=== PATIENT | male | born 1990 | race African-American/Black ===

== ENCOUNTER → 2022-10-26 10:48 | Outpatient (BNVA) | payer OTHER, SELFPAY | PROVIDERS: PCP Internal Medicine; Visit Provider Internal Medicine Endocrinology, Diabetes & Metabolism | DX: E10.65 Type 1 diabetes mellitus with hyperglycemia (principal) | CPT/HCPCS: 82947 ==

== ENCOUNTER → 2022-11-21 12:36 | Outpatient (BNVA) | payer OTHER, SELFPAY | PROVIDERS: PCP Internal Medicine; Visit Provider Dietitian, Registered | DX: E10.65 Type 1 diabetes mellitus with hyperglycemia (principal) | CPT/HCPCS: 97802 ==

== ENCOUNTER 2023-01-24 09:58 | Outpatient (REF) | payer OTHER, SELFPAY ==
[2023-01-28 04:18] LABS: Glutamic acid decarboxylase Ab <5 IU/mL (<5)
== END 2023-01-24 09:59 | disposition home or self-care (01) ==
LOC: HO.LAB 09:58
PROVIDERS: PCP Internal Medicine; Visit Provider Internal Medicine Endocrinology, Diabetes & Metabolism
DX: E10.65 Type 1 diabetes mellitus with hyperglycemia (principal)
CPT/HCPCS: 36415; 86341

== ENCOUNTER → 2023-01-25 10:59 | Outpatient (BNVA) | payer OTHER, SELFPAY | PROVIDERS: PCP Internal Medicine; Visit Provider Internal Medicine Endocrinology, Diabetes & Metabolism | DX: E10.65 Type 1 diabetes mellitus with hyperglycemia (principal) | CPT/HCPCS: 82947; 83036 ==

== ENCOUNTER → 2023-03-07 11:11 | Outpatient (BNVA) | payer OTHER, SELFPAY | PROVIDERS: PCP Internal Medicine; Visit Provider Dietitian, Registered | DX: E10.65 Type 1 diabetes mellitus with hyperglycemia (principal); Z71.3 Dietary counseling and surveillance | CPT/HCPCS: 97803 ==

== ENCOUNTER → 2023-03-22 09:02 | Outpatient (BNVA) | payer OTHER, SELFPAY | PROVIDERS: PCP Internal Medicine; Visit Provider Registered Nurse Diabetes Educator ==

== ENCOUNTER → 2023-04-18 08:06 | Outpatient (BNVA) | payer OTHER, SELFPAY | PROVIDERS: PCP Internal Medicine; Visit Provider Internal Medicine Endocrinology, Diabetes & Metabolism | DX: E10.65 Type 1 diabetes mellitus with hyperglycemia (principal) | CPT/HCPCS: 82947; 83036 ==

== ENCOUNTER 2023-07-19 07:55 | Outpatient (AMB) | payer OTHER, SELFPAY ==
--- NOTE | 2023-07-19 08:00 | MHC.OFFVIS ---
Intake Vital Signs 07/19/23 08:04 Height 5 ft 11 in Weight 252 lb 10.396 oz BMI 35.2 BP 100/62 Blood Pressure Location Lt brachial Position Sitting Pulse 71 Pulse Source Pulse Oximeter Intake Visit Reasons: f/u Type 2 DM Intake Note: Patient presents today to follow up on Type Diabetes Mellitus. Patient receives DME supplies through: Last Diabetic Eye exam: 07/19/2023 Last Podiatry Visit:None Random Glucose: 233mg/dl HgA1C:11.3% Manufacturing Test Technician Required: No Accompanied by: Self / Same As Patient Allergies No Known Allergies Allergy (Verified 04/18/23 08:11) HPI HPI Comments History of Present Illness Details 32 YO M with is seen in consultation for presumed T1DM at the request of PCP. However pt has negative antibodies Initially diagnosed with DM in age 23 when presented with problems with vision .Was hospitalized . Saw aftab in [facility] Was initially started on treatment with insulin . Current regimen: Mounjaro 5 mg Qwkly stopped because of GI intolerance -had to go to ER Lantus 34 units Humalog 12-15 units premeals Unfortunately, patient did not bring log book or glucometer to follow-up visit No hypoglycemia Treats lows with skim milk . Checks sugar after to ensure it is rising. Follows the rule of 15's. No Family history of autoimmunity in Has eyes checked yearly, last eye exam 6 mos ago , keyur gaspar today retinopathy. Denies neuropathy, not see podiatry. Denies nephropathy, on CARMELLA/ARB. Has HLD, on statin. Denies history of CAD. Just Had diabetes education. Diet/Carb counting: Yes Denies prior episodes of DKA. Denies prior severe episodes of hypoglycemia requiring help or hospitalization. No family hx of diabetes Labs: [facility] Medical History (Updated 03/13/23 @ 09:54 by Erlinda Valentin, RD, LDN) Uncontrolled type 2 diabetes mellitus with hyperglycemia Uncontrolled type 1 diabetes mellitus with hyperglycemia, with long-term current use of insulin Surgical History History of surgery Family History Mother Hypertension Social History Household Members: Significant Other Alcohol intake: current Alcohol intake frequency: a few times a month Patient Tobacco Use Status: Never used Tobacco Physical Exam Vital Signs: Last Vital Signs Pulse 71 07/19/23 08:04 BP 100/62 07/19/23 08:04 BMI result Body Mass Index 35.2 Absence of Cushingoid features. Absence of acromegalic features. Neck exam reveals nl size thyroid about 15 gms. No thyroid nodules palpable. No carotid bruits present. Lungs CTA. Heart S1 S2, Reg R/R. No M/R/ G. Skin exam reveals absence of vitiligo or acanthosis nigricans. Abdominal exam reveals Soft NT/ND with NA BS. No organomegaly present. Extrem Other: Visual exam of foot performed. No ulcerations or open lesions. No onchomycosis, no callouses.Pulses 2 + distally. Sensation intact to monofilament exam. Vibratory sensation sensed 10 seconds in right, 10 seconds in left with 128 Hz tuning fork Results AMB Hemoglobin A1c AMB Hemoglobin A1c 11.3 % Last Edit by Siobhan Ovalles on 07/19/23 08:25 Results Reviewed Results Reviewed: 07/19/23 08:12 Glucose, Whole Blood Routine Laboratory Last Values Glucose (Clinic) 233 mg/dL (60-115) H 07/19/23 08:12 Assessment & Plan Assessment & Plan (1) Uncontrolled type 2 diabetes mellitus with hyperglycemia: Code(s): E11.65 - Type 2 diabetes mellitus with hyperglycemia (2) Uncontrolled type 1 diabetes mellitus with hyperglycemia, with long-term current use of insulin: Comment: It appears that Pt has type 2 DM with SANDI <5 mg on 01/24/23 and as stated by director of market intelligence Code(s): E10.65 - Type 1 diabetes mellitus with hyperglycemia Plan: This is a 32-year-old male with history of type 2 diabetes being treated with basal -bolus insulin with poor glycemic control and no known microvascular or macrovascular complication Unfortunately, we could not make any changes the patient regimen because of lack of data. I gave him samples of Dexcom G7 and renewed his sensors . We talked extensively about insulin pump and he seems interested lb with clinical educator to discuss . Will also check basic metabolic panel, lipid profile microalbumin to creatinine ratio Orders: Orders AMB Hemoglobin A1c Today E11.65 - Type 2 diabetes mellitus with hyperglycemia Basic Metabolic Panel Today E11.65 - Type 2 diabetes mellitus with hyperglycemia Microalbumin, Random (w Creat) Today E11.65 - Type 2 diabetes mellitus with hyperglycemia Lipid Panel Today E11.65 - Type 2 diabetes mellitus with hyperglycemia Medications: Refilled blood-glucose sensor (Dexcom G7 Sensor device) As directed change every 10 days 2 ea 4RF blood-glucose sensor (Dexcom G7 Sensor device) As directed change every 10 days 3 ea 4RF Coding Level of Care Code Est Pt Level 4 (98041) Diagnoses Uncontrolled type 2 diabetes mellitus with hyperglycemia E11.65 Uncontrolled type 1 diabetes mellitus with hyperglycemia, with long-term current use of insulin E10.65
[2023-07-19 08:04] VITALS: BP 100/62; PULSE 71; BMI 35.2
[2023-07-19 08:16] LABS: Glucose, Whole Blood 233 mg/dL (60-115)
== END 2023-07-19 08:37 | disposition home or self-care (01) ==
PROVIDERS: PCP Internal Medicine; Visit Provider Internal Medicine Endocrinology, Diabetes & Metabolism
DX: E11.65 Type 2 diabetes mellitus with hyperglycemia (principal)
CPT/HCPCS: 99214

== ENCOUNTER → 2023-07-19 07:55 | Outpatient (BNVA) | payer OTHER, SELFPAY | PROVIDERS: PCP Internal Medicine; Visit Provider Internal Medicine Endocrinology, Diabetes & Metabolism | DX: E11.65 Type 2 diabetes mellitus with hyperglycemia (principal); Z79.4 Long term (current) use of insulin | CPT/HCPCS: 82947; 83036 ==

== ENCOUNTER 2024-02-04 07:41 | Outpatient (AMB) | payer OTHER, SELFPAY ==
--- NOTE | 2024-02-04 07:50 | MHC.OFFVIS ---
Intake Vital Signs 02/04/24 07:54 Height 5 ft 11 in Weight 274 lb 14.663 oz BMI 38.3 BP 120/76 Blood Pressure Location Lt brachial Position Sitting Pulse 74 Pulse Source Pulse Oximeter Intake Visit Reasons: f/u Type 2 DM-confirmed Intake Note: Patient present today to follow up on Diabetes Mellitus 1. Last Diabetic Eye exam: 02/2023 Last Podiatry Visit: Doesn't have one Random Glucose: 105 mg/dl HgA1C: 12.9% Professor Of Psychiatry Required: No Accompanied by: Self / Same As Patient Allergies No Known Allergies Allergy (Verified 02/04/24 07:57) HPI HPI Comments History of Present Illness Details 33 YO M with is seen in consultation for presumed T1DM at the request of PCP. However pt has negative antibodies Initially diagnosed with DM in age 23 when presented with problems with vision .Was hospitalized . Saw aftab in [facility] Was initially started on treatment with insulin . Current regimen: Mounjaro 5 mg Qwkly stopped because of GI intolerance -had to go to ER Lantus 34 units Humalog 12-15 units premeals Unfortunately, patient did not bring log book or glucometer to follow-up visit No hypoglycemia Treats lows with skim milk . Checks sugar after to ensure it is rising. Follows the rule of 15's. No Family history of autoimmunity in Has eyes checked yearly, last eye exam has appt this mo retinopathy. Denies neuropathy, not see podiatry. Denies nephropathy, on CARMELLA/ARB. Has HLD, on statin. Denies history of CAD. Just Had diabetes education. Diet/Carb counting: Yes Denies prior episodes of DKA. Denies prior severe episodes of hypoglycemia requiring help or hospitalization. No family hx of diabetes Labs: [facility] Medical History (Updated 03/13/23 @ 09:54 by Erlinda Valentin, RD, LDN) Uncontrolled type 2 diabetes mellitus with hyperglycemia Uncontrolled type 1 diabetes mellitus with hyperglycemia, with long-term current use of insulin Surgical History History of surgery Family History Mother Hypertension Social History Household Members: Significant Other Alcohol intake: current Alcohol intake frequency: a few times a month Patient Tobacco Use Status: Never used Tobacco Physical Exam Vital Signs: Last Vital Signs Pulse 74 02/04/24 07:54 BP 120/76 02/04/24 07:54 BMI result Body Mass Index 38.3 Absence of Cushingoid features. Absence of acromegalic features. Neck exam reveals nl size thyroid about 15 gms. No thyroid nodules palpable. No carotid bruits present. Lungs CTA. Heart S1 S2, Reg R/R. No M/R/ G. Skin exam reveals absence of vitiligo or acanthosis nigricans. Abdominal exam reveals Soft NT/ND with NA BS. No organomegaly present. Extrem Other: Visual exam of foot performed. No ulcerations or open lesions. No onchomycosis, no callouses.Pulses 2 + distally. Sensation intact to monofilament exam. Vibratory sensation sensed 10 seconds in right, 10 seconds in left with 128 Hz tuning fork Results AMB Hemoglobin A1c AMB Hemoglobin A1c 12.9 % Last Edit by DIPTI Hall on 02/04/24 08:12 Results Reviewed Results Reviewed: Laboratory Last Values Glucose (Clinic) 105 mg/dL (60-115) 02/04/24 07:58 Assessment & Plan Assessment & Plan (1) Uncontrolled type 2 diabetes mellitus with hyperglycemia: Code(s): E11.65 - Type 2 diabetes mellitus with hyperglycemia Plan: This is a 32-year-old male with history of type 2 diabetes being treated with basal -bolus insulin with poor glycemic control and no known microvascular or macrovascular complication Unfortunately, we could not make any changes the patient regimen because of lack of data. I gave him samples of Dexcom G7 and renewed his sensors . Insurance company is denying the sensor and we are trying to appeal this as he is on 4 insulin injections today with poor glycemic control. We talked extensively about insulin pump and he seems interested lb with peer educator to discuss . Will also check basic metabolic panel, lipid profile microalbumin to creatinine ratio Orders: Orders AMB Hemoglobin A1c Today E11.65 - Type 2 diabetes mellitus with hyperglycemia, Z13.9 - Encounter for screening, unspecified Medications: Refilled blood-glucose sensor (Dexcom G7 Sensor device) As directed change every 10 days 3 ea 4RF Coding Level of Care Code Est Pt Level 4 (75902) Diagnoses Uncontrolled type 2 diabetes mellitus with hyperglycemia E11.65
[2024-02-04 07:54] VITALS: BP 120/76; PULSE 74; BMI 38.3
[2024-02-04 08:04] LABS: Glucose, Whole Blood 105 mg/dL (60-115)
== END 2024-02-04 08:24 | disposition home or self-care (01) ==
PROVIDERS: PCP Internal Medicine; Visit Provider Internal Medicine Endocrinology, Diabetes & Metabolism
DX: Z13.9 Encounter for screening, unspecified (principal); E11.65 Type 2 diabetes mellitus with hyperglycemia
CPT/HCPCS: 99214

== ENCOUNTER → 2024-02-04 07:41 | Outpatient (BNVA) | payer OTHER, SELFPAY | PROVIDERS: PCP Internal Medicine; Visit Provider Internal Medicine Endocrinology, Diabetes & Metabolism ==

== ENCOUNTER 2024-02-04 08:23 | Outpatient (REF) | payer OTHER, SELFPAY ==
[2024-02-04 10:54] LABS: Anion Gap 10 (12-20); Blood Urea Nitrogen 9 mg/dL (9-16); Carbon Dioxide 28 mmol/L (22-29); Chloride 108 mmol/L (96-108); Cholesterol 145 mg/dL (<200); Estimated Glomerular Filt Rate > 60; Glucose Random 110 mg/dL (60-115); HDL Cholesterol 40 mg/dL (>40); LDL Cholesterol Calculated 93 mg/dL (<100); Potassium 3.7 mmol/L (3.3-5.1); Sodium 142 mmol/L (135-145); Triglycerides 62 mg/dL (<150)
[2024-02-04 14:44] LABS: Microalbum/Creatinine Ratio Ur 22.5 ug/mg cr (<30)
== END 2024-02-04 08:24 | disposition home or self-care (01) ==
LOC: HO.10HDL 08:23
PROVIDERS: Visit Provider Internal Medicine Endocrinology, Diabetes & Metabolism
DX: E11.65 Type 2 diabetes mellitus with hyperglycemia (principal)
CPT/HCPCS: 36415; 80048; 80061; 82043; 82570; 82947; 83036

== ENCOUNTER 2024-07-08 09:27 | Outpatient (AMB) | payer OTHER, SELFPAY ==
--- NOTE | 2024-07-08 09:27 | A.OFFVIS_ITS ---
Vital Signs 07/08/24 09:31 Height 5 ft 11 in Weight 278 lb 7.101 oz BMI 38.8 BP 116/82 Blood Pressure Location Rt brachial Position Sitting Pulse 88 Pulse Source Pulse Oximeter Intake Visit Reasons: T2DM Intake Note: Patient present today to follow up on Type 2 Diabetes Mellitus. Last Diabetic Eye exam: Approx 1-2 months ago Last Podiatry Visit: Does not see a Diesel Engine Tester Random Glucose: 181 mg/dl HgA1C: 12.0% Aerosol Line Operator Required: No Accompanied by: Self / Same As Patient Allergies No Known Allergies Allergy (Verified 07/08/24 09:33) HPI Comments Details: This is a 33-year-old male with a past medical history of uncontrolled type II diabetes diagnosed at age 23 presenting for diabetic management. He was last seen by Dr. Sanchez in January of 2024. Initial diagnosis he was thought to have type 1 diabetes, but he had negative antibodies. No home log to review. Phone is not compatible with his sensor. Patient was provided with a reader today. The patient has a [id number] son, and he started a new job at [employer] a couple of months ago. 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 With these changes he has recently decided to implement lifestyle modifications. He increased his activity level, and he started to eat healthier meals that are centered around protein and vegetables. He cut back on soda. If he has something sweet it is an occasional fruit bar, but he is not having other sugary snacks or chips. Patient says he has noticed a big difference in his BG readings with these changes. He forgot his glucometer, and he reports that BG at 6am 100 is lowest and highest 250. Average 120-145. Checks BG before breakfast at 9:00am. This is usually 130-140. Eats lunch between 11:30 and 1pm. This is usually chicken or steak with vegetables and water. After the meal BG 160-190. Eats evening meal at 5 or 7 pm, sometimes mac and cheese with chicken (grilled or chicken cutlet), cucumber and water or just protein and vegetables and water. BG usually 200 and then decreases to 170s after meal. Denies hypoglycemia. Highest glucose in the last month was 250 in the morning. . Nonsmoker. Drinks 1-2 alcoholic beverages on weekends. Hemoglobin a1c 12% today. Current medication regimen: Humalog sliding scale and Lantus 34 units every morning. Mounjaro discontinued due to GI side effects (had to go to ER). Compliance issues: none Eye exam: OD retinopathy, but patient says this has improved on recent eye exam at [facility]. OS no retinopathy. Microvascular complications: retinopathy Macrovascular complications: none Hypertension: no Hyperlipidemia: no LDL at goal <100. ROS: Constitutional: No unexplained weight loss, fever, chills, fatigue or night sweats. Eyes: No vision changes, blurry vision, double vision, eye pain Respiratory: No shortness of breath Cardiovascular: No chest pain, chest pressure or chest discomfort. No palpitations or pedal edema. Neurologic: No headache, dizziness, syncope, unilateral weakness, ataxia, numbness or tingling in the extremities. Endocrine: No cold or heat intolerance. No polyuria or polydipsia. Physical exam: Constitutional: Alert, in no distress. Eyes: Pupils are equal, round and reactive to light. Extraocular muscles intact. Neck: Supple, Full range of motion. No lymphadenopathy. Thyroid symmetric with no palpable masses. Respiratory: Clear to auscultation. Cardiovascular: S1 S2 regular. No murmurs. Right foot: Warm and well perfused. No clubbing, cyanosis or edema. DP pulse 3+. Intact vibratory sensation. Intact sensation to monofilament. No open wounds. Left foot: Warm and well perfused. No clubbing, cyanosis or edema. DP pulse 3+. Intact vibratory sensation. Intact sensation to monofilament. No open wounds. [facility] Medical History (Updated 03/13/23 @ 09:54 by Erlinda Valentin, RD, LDN) Uncontrolled type 2 diabetes mellitus with hyperglycemia Uncontrolled type 1 diabetes mellitus with hyperglycemia, with long-term current use of insulin Surgical History History of surgery Family History Mother Hypertension Social History Household Members: Significant Other Alcohol intake: current Alcohol intake frequency: a few times a month Patient Tobacco Use Status: Never used Tobacco Physical Exam Vital Signs: Last Vital Signs Pulse 88 07/08/24 09:31 BP 116/82 07/08/24 09:31 BMI result Body Mass Index 38.8 Results AMB Hemoglobin A1c AMB Hemoglobin A1c 12.0 % Last Edit by DIPTI Cook on 07/08/24 09:55 Results Reviewed Results Reviewed: Laboratory Last Values Glucose (Clinic) 181 mg/dL (60-115) H 07/08/24 09:39 Laboratory Tests 02/04/24 02/04/24 08:02 08:30 Creatinine 0.75 Estimated GFR > 60 Hgb A1c (Clinic) 12.9 H Triglycerides 62 Cholesterol 145 LDL Cholesterol, Calc 93 HDL Cholesterol 40 L Laboratory Tests 02/04/24 08:30 Urine Creatinine 337.01 Urine Microalbumin 76.0 Microalb/Creat Ratio 22.5 Assessment & Plan Assessment & Plan (1) Uncontrolled type 2 diabetes mellitus with hyperglycemia: Code(s): E11.65 - Type 2 diabetes mellitus with hyperglycemia Category: Medical Plan: In summary this is a 33-year-old male with type 2 diabetes with retinopathy which has been poorly controlled, but he reports recent improvement in BGs following lifestyle modifications and dietary changes. We will need to verify this per glucometer. Given reader for G7 device. Reviewed importance of bringing glucometer to visits. We will schedule a short-term follow-up to re view data. Previously discussed insulin pump with Dr. Sanchez. He is still interested in this though not completely sure if he wants to proceed. Will schedule follow-up with sprinkler installer. We also discussed Cequr device, and he thinks this is appealing. He did not tolerate GLP 1. We will discuss alternative antidiabetic agents at his follow-up appointment once data is available to review. Orders: Orders AMB Hemoglobin A1c Today E11.65 - Type 2 diabetes mellitus with hyperglycemia Referrals Diabetes Education Referral E10.65 - Type 1 diabetes mellitus with hyperglycemia Coding Level of Care Code Est Pt Level 5 (12818) Complex EM visit Add On G2211 Diagnoses Uncontrolled type 2 diabetes mellitus with hyperglycemia E11.65 Time Spent (min) 48 Comment reviewing chart/labs, direct patient care, completing documentation
[2024-07-08 09:31] VITALS: BP 116/82; PULSE 88; BMI 38.8
[2024-07-08 09:43] LABS: Glucose, Whole Blood 181 mg/dL (60-115)
== END 2024-07-08 10:14 | disposition home or self-care (01) ==
PROVIDERS: Visit Provider Physician Assistant Medical
DX: E11.65 Type 2 diabetes mellitus with hyperglycemia (principal)
CPT/HCPCS: 99215

== ENCOUNTER → 2024-07-08 09:27 | Outpatient (BNVA) | payer OTHER, SELFPAY | PROVIDERS: Visit Provider Physician Assistant Medical | DX: E11.65 Type 2 diabetes mellitus with hyperglycemia (principal); E11.319 Type 2 diabetes mellitus with unspecified diabetic retinopathy without macular edema | CPT/HCPCS: 82947; 83036 ==

== ENCOUNTER 2024-09-02 09:19 | Outpatient (AMB) | payer OTHER, SELFPAY ==
--- NOTE | 2024-09-02 09:20 | A.OFFVIS_ITS ---
Vital Signs 09/02/24 09:23 Height 5 ft 11 in Weight 291 lb 0.163 oz BMI 40.6 BP 122/76 Blood Pressure Location Rt brachial Position Sitting Pulse 78 Pulse Source Pulse Oximeter Intake Visit Reasons: DM review CGM/LVM Intake Note: Patient present today to follow up on Type 2 Diabetes Mellitus. Last Diabetic Eye exam: 2023 Last Podiatry Visit: Does not see a Cork Pressing Machine Operator Most Recent HgA1C: 12.0%, 07/08/2024 Random Glucose: 227 mg/dL, Today Electric Accounting Machine Operator Required: No Accompanied by: Self / Same As Patient Allergies No Known Allergies Allergy (Verified 09/02/24 09:22) HPI Comments Details: This is a 33-year-old male with a past medical history of uncontrolled type II diabetes diagnosed at age 23 presenting for diabetic management. He was last seen by me in June 2024. Unable to download CGM. Reviewed data on phone. Dexcom G7 review from the past 14 days: GMI 9.7% Target 27% High 23% Very high 49% 0% hypoglycemia Denies hypoglycemia. Nonsmoker. Drinks 1-2 alcoholic beverages on weekends. Hemoglobin a1c 12% 07/08/24. Current medication regimen: Humalog and Lantus 34 units every morning. Mounjaro discontinued due to GI side effects (after 2nd injection he had nausea and vomiting and went to the ER). Taking 12-14 units of Humalog before lunch, 15 units before breakfast, 9-10 units before dinner. Compliance issues: none Eye exam: OD retinopathy- [facility]. Microvascular complications: retinopathy Macrovascular complications: none Hypertension: no Hyperlipidemia: no LDL at goal <100. ROS: Constitutional: No unexplained weight loss, fever, chills, fatigue or night sweats. Eyes: No vision changes, blurry vision, double vision, eye pain Respiratory: No shortness of breath Cardiovascular: No chest pain, chest pressure or chest discomfort. No palpitations or pedal edema. Neurologic: No headache, dizziness, syncope, unilateral weakness, ataxia, numbness or tingling in the extremities. Endocrine: No cold or heat intolerance. No polyuria or polydipsia. Physical exam: Constitutional: Alert, in no distress. Neck: Supple, Full range of motion. No lymphadenopathy. No palpable thyroid masses. Respiratory: Clear to auscultation. Cardiovascular: S1 S2 regular. No murmurs. Gastrointestinal: Abdomen soft, non-tender, non-distended. Normal bowel sounds. No palpable masses. Extremities: Warm and well perfused. No clubbing, cyanosis or edema. Psychiatric: Normal mood and affect [facility] Medical History Uncontrolled type 2 diabetes mellitus with hyperglycemia Uncontrolled type 1 diabetes mellitus with hyperglycemia, with long-term current use of insulin Surgical History History of surgery Family History Mother Hypertension Social History Household Members: Significant Other Alcohol intake: current Alcohol intake frequency: a few times a month Patient Tobacco Use Status: Never used Tobacco Physical Exam Vital Signs: Last Vital Signs Pulse 78 09/02/24 09:23 BP 122/76 09/02/24 09:23 BMI result Body Mass Index 40.6 Results Reviewed Results Reviewed: Laboratory Last Values Glucose (Clinic) 227 mg/dL (60-115) H 09/02/24 09:25 Laboratory Tests 02/04/24 02/04/24 08:02 08:30 Creatinine 0.75 Estimated GFR > 60 Hgb A1c (Clinic) 12.9 H Triglycerides 62 Cholesterol 145 LDL Cholesterol, Calc 93 HDL Cholesterol 40 L Laboratory Tests 02/04/24 08:30 Urine Creatinine 337.01 Urine Microalbumin 76.0 Microalb/Creat Ratio 22.5 Assessment & Plan Assessment & Plan (1) Uncontrolled type 2 diabetes mellitus with hyperglycemia: Code(s): E11.65 - Type 2 diabetes mellitus with hyperglycemia Category: Medical Plan: In summary this is a 33-year-old male with uncontrolled type 2 diabetes with retinopathy. Continue Humalog and continue Lantus 34 units daily. We discussed addition of SGLT2, but he would like to try another GLP 1 because he wants to lose weight. We discussed he may have the same side effects, but in some patients they are able to tolerate 1 versus another. I will send a prescription for ondansetron to take if he has nausea or vomiting, but he was advised to go to the ER if he has any severe side effects. He understands. He denies contraindications to this class of medication. The patient is still interested in an insulin pump. Refer to paraeducator. He will follow up in a month for type 2 diabetes with me. Medications: New semaglutide (Ozempic) for 4 weeks 0.25 mg (0.368 mL) subcut QWEEK 3 mL 0RF ondansetron HCl 4 mg PO Q8H PRN 10 tabs 0RF nausea and vomiting insulin glargine (Lantus Solostar U-100 Insulin) 34 units (0.34 mL) subcut DAILY 15 mL 5RF Changed From insulin lispro (Humalog KwikPen (U-100) Insulin) 24-34 units subcutaneously 3 times a day; To insulin lispro (Humalog KwikPen (U-100) Insulin) Inject subcutaneously per sliding scale; maximum 45 units/24 hours 15 mL 5RF Refilled blood-glucose sensor ([employer] G7 Sensor device) As directed change every 10 days 3 ea 11RF Coding Level of Care Code Est Pt Level 4 (39748) Complex EM visit Add On G2211 Diagnoses Uncontrolled type 2 diabetes mellitus with hyperglycemia E11.65
[2024-09-02 09:23] VITALS: BP 122/76; PULSE 78; BMI 40.6
[2024-09-02 09:29] LABS: Glucose, Whole Blood 227 mg/dL (60-115)
== END 2024-09-02 10:05 | disposition home or self-care (01) ==
PROVIDERS: Visit Provider Physician Assistant Medical
DX: E11.65 Type 2 diabetes mellitus with hyperglycemia (principal)

== ENCOUNTER → 2024-09-02 09:19 | Outpatient (BNVA) | payer OTHER, SELFPAY | PROVIDERS: Visit Provider Physician Assistant Medical | DX: E11.65 Type 2 diabetes mellitus with hyperglycemia (principal); E11.319 Type 2 diabetes mellitus with unspecified diabetic retinopathy without macular edema; Z79.4 Long term (current) use of insulin | CPT/HCPCS: 82947 ==

== ENCOUNTER 2024-10-14 09:28 | Outpatient (AMB) | payer OTHER, SELFPAY ==
--- NOTE | 2024-10-14 09:40 | MHC.OFFVIS ---
Vital Signs 10/14/24 09:43 Height 5 ft 11 in Weight 295 lb 13.765 oz BMI 41.3 BP 124/76 Blood Pressure Location Rt brachial Position Sitting Pulse 77 Pulse Source Pulse Oximeter Intake Visit Reasons: DM/CONF Intake Note: Patient present today to follow up on Type 2 Diabetes Mellitus. Last Diabetic Eye exam: Mid summer 2023 Last Podiatry Visit: Does not see a Production Service Manager Random Glucose: 208 mg/dl HgA1C: 9.2% 10/14/24 Decorative Cutting Machine Tender Required: No Accompanied by: Self / Same As Patient Allergies No Known Allergies Allergy (Verified 10/14/24 09:43) HPI Comments Details: This is a 33-year-old male with a past medical history of uncontrolled type II diabetes diagnosed at age 23 presenting for diabetic management. He was last seen by me 09/02/24. Reviewed Dexcom download: GMI 9.6% Time in range 27% High readings 17% Very high readings 55% Low 1% Very low 0% Standard deviation 111 mg/dL He has a pattern of nighttime and daytime highs. Patient had several episodes of low blood sugar overnight. One occurred last night. He administered 18 units of Humalog 5-10 minutes after starting a carbohydrate heavy meal. Patient says he always administers Humalog after he starts eating. Nonsmoker. Drinks 1-2 alcoholic beverages on weekends. Hemoglobin A1c 10/14/2024 9.2%. Down from 12% 07/08/24. Current medication regimen: Humalog 10-18 units with meals and Lantus 34 units every morning and Ozempic 0.25 mg weekly. Mounjaro discontinued due to GI side effects (after 2nd injection he had nausea and vomiting and went to the ER). Patient says he was previously on metformin, but it was discontinued when he was thought to be a type [address] Sanchez ordered a SANDI antibody test in 2022 which was negative. He has no family history of type 1 or type 2 diabetes. Compliance issues: He stopped Ozempic due headache that lasted 1 week after his 1st dose. Eye exam: OD retinopathy- [place] [facility]. Microvascular complications: retinopathy Macrovascular complications: none Hypertension: no Hyperlipidemia: no LDL at goal <100. ROS: Constitutional: No unexplained weight loss, fever, chills, fatigue or night sweats. Eyes: No vision changes, blurry vision, double vision, eye pain Respiratory: No shortness of breath Cardiovascular: No chest pain, chest pressure or chest discomfort. No palpitations or pedal edema. Neurologic: No headache, dizziness, syncope, unilateral weakness, ataxia, numbness or tingling in the extremities. Endocrine: No cold or heat intolerance. No polyuria or polydipsia. Physical exam: Constitutional: Alert, in no distress. Neck: Supple, Full range of motion. No lymphadenopathy. No palpable thyroid masses. Respiratory: Clear to auscultation. Cardiovascular: S1 S2 regular. No murmurs. [facility] Medical History Uncontrolled type 2 diabetes mellitus with hyperglycemia Uncontrolled type 1 diabetes mellitus with hyperglycemia, with long-term current use of insulin Surgical History History of surgery Family History Mother Hypertension Social History Household Members: Significant Other Alcohol intake: current Alcohol intake frequency: a few times a month Patient Tobacco Use Status: Never used Tobacco Physical Exam Vital Signs: Last Vital Signs Pulse 77 10/14/24 09:43 BP 124/76 10/14/24 09:43 BMI result Body Mass Index 41.3 Results AMB Hemoglobin A1c AMB Hemoglobin A1c 9.2 % Last Edit by DIPTI Cook on 10/14/24 09:57 Results Reviewed Results Reviewed: Laboratory Last Values Glucose (Clinic) 208 mg/dL (60-115) H 10/14/24 09:47 Laboratory Tests 02/04/24 02/04/24 08:02 08:30 Creatinine 0.75 Estimated GFR > 60 Hgb A1c (Clinic) 12.9 H Triglycerides 62 Cholesterol 145 LDL Cholesterol, Calc 93 HDL Cholesterol 40 L Laboratory Tests 02/04/24 08:30 Urine Creatinine 337.01 Urine Microalbumin 76.0 Microalb/Creat Ratio 22.5 Laboratory Tests 01/24/23 10:09 SANDI Antibody <5 Assessment & Plan Assessment & Plan (1) Uncontrolled type 2 diabetes mellitus with hyperglycemia: Code(s): E11.65 - Type 2 diabetes mellitus with hyperglycemia Category: Medical Plan: In summary this is a 33-year-old male with uncontrolled diabetes with retinopathy. Negative SANDI antibody is suggestive of type 2 diabetes. We will check islet cell antibody, repeat SANDI and check C-peptide level to confirm. If type 2 diabetes is confirmed by testing we discussed reinitiating metformin versus trying another GLP 1 or SGLT2. He will think about this. Reduce Humalog scale with max dose of 14 units due to episodes of nocturnal hypoglycemia. We also discussed proper administration because he was taking it after eating. He will administer 15 minutes before meals. Increase Lantus to 38 units daily. He has an appointment scheduled with the coding educator. He is still interested in an insulin pump. We discussed proper treatment of hypoglycemia. Written instructions given. Glucose tablets sent to pharmacy. I will follow up with him by phone regarding his test results when they are available and have him see me back in the office in 6 weeks for type 2 diabetes. Orders: Orders Islet Cell Antibody Scrn/Titer Today E11.65 - Type 2 diabetes mellitus with hyperglycemia C Peptide Today E11.65 - Type 2 diabetes mellitus with hyperglycemia Glutamic acid decarboxylase Ab Today E11.65 - Type 2 diabetes mellitus with hyperglycemia AMB Hemoglobin A1c Today E11.65 - Type 2 diabetes mellitus with hyperglycemia Medications: New glucose (Dex4 Glucose) until symptoms of low blood sugar are controlled 16 grams (4 x 4 gram) PO Q15M PRN 10 tabs 2RF hypoglycemia Patient Instructions: Administration timing of short-acting/mealtime insulin Humalog: Administer within 15 minutes before a meal. Decrease max dose of humalog to 14 units Increase Lantus to 38 units nightly. Please call the office if low blood sugars please contact me. If you experience low blood sugar, treat this by eating a chewable fruit candy like skittles or jelly beans (about 8 pieces), 4 ounces (1/2 cup) of fruit juice (not diet), 1 tablespoon of honey or 4 glucose tablets. If your blood sugar is under 50, take double the amount of one of the above. Recheck your blood sugar in 15 minutes. Coding Level of Care Code Est Pt Level 4 (39808) Complex EM visit Add On G2211 Diagnoses Uncontrolled type 2 diabetes mellitus with hyperglycemia E11.65
[2024-10-14 09:43] VITALS: BP 124/76; PULSE 77; BMI 41.3
[2024-10-14 09:51] LABS: Glucose, Whole Blood 208 mg/dL (60-115)
== END 2024-10-14 10:12 | disposition home or self-care (01) ==
PROVIDERS: Visit Provider Physician Assistant Medical
DX: E11.65 Type 2 diabetes mellitus with hyperglycemia (principal)

== ENCOUNTER → 2024-10-14 09:28 | Outpatient (BNVA) | payer OTHER, SELFPAY | PROVIDERS: Visit Provider Physician Assistant Medical | DX: E11.65 Type 2 diabetes mellitus with hyperglycemia (principal); Z79.4 Long term (current) use of insulin | CPT/HCPCS: 82947; 83036 ==

== ENCOUNTER 2024-10-14 10:14 | Outpatient (REF) | payer OTHER, SELFPAY ==
[2024-10-16 00:22] LABS: C Peptide 0.23 ng/mL (0.80-3.85)
[2024-10-17 19:39] LABS: Glutamic acid decarboxylase Ab <5 IU/mL (<5)
[2024-10-18 00:23] LABS: Islet Cell Antibody Screen NEGATIVE (NEGATIVE)
== END 2024-10-14 10:15 | disposition home or self-care (01) ==
LOC: HO.10HDL 10:14
PROVIDERS: Visit Provider Physician Assistant Medical
DX: E11.65 Type 2 diabetes mellitus with hyperglycemia (principal)
CPT/HCPCS: 36415; 84681; 86341

== ENCOUNTER 2024-10-23 07:57 | Outpatient (AMB) | payer OTHER, SELFPAY ==
--- NOTE | 2024-10-23 08:31 | MHC.AMDMED ---
Intake Intake Visit Reasons: DM Baling Press Operator Required: No Accompanied by: Self / Same As Patient Allergies No Known Allergies Allergy (Verified 10/14/24 09:43) HPI Comprehensive Diabetes Asmnt Most Recent Diabetes Results: Microalb/Creat Ratio 22.5 ug/mg cr (<30) 02/04/24 Cholesterol 145 mg/dL (<200) 02/04/24 HDL Cholesterol 40 mg/dL (>40) L 02/04/24 Triglycerides 62 mg/dL (<150) 02/04/24 Creatinine 0.75 mg/dL (0.5-1.4) 02/04/24 Blood Urea Nitrogen 9 mg/dL (9-16) 02/04/24 Sodium 142 mmol/L (135-145) 02/04/24 Potassium 3.7 mmol/L (3.3-5.1) 02/04/24 Chloride 108 mmol/L (96-108) 02/04/24 Carbon Dioxide 28 mmol/L (22-29) 02/04/24 Calcium 9.0 mg/dL (8.4-10.2) 02/04/24 [facility] Medical History (Updated 10/21/24 @ 13:19 by AMBAR Whitaker) Type 1.5 diabetes, managed as type 1 Uncontrolled type 2 diabetes mellitus with hyperglycemia Uncontrolled type 1 diabetes mellitus with hyperglycemia, with long-term current use of insulin Surgical History History of surgery Family History Mother Hypertension Social History Household Members: Significant Other Alcohol intake: current Alcohol intake frequency: a few times a month Patient Tobacco Use Status: Never used Tobacco Assessment & Plan Assessment & Plan (1) Type 1.5 diabetes, managed as type 1: Comment: low cpeptide, negative SANDI and islet cell antibodies October 2024 Code(s): E13.9 - Other specified diabetes mellitus without complications Plan: Pump Assessment: Type of DM: 1.5 Dx at age: 23 Previous DKA: yes Current Insulin Rx: MDI Patient takes insulin as prescribed: Yes Patient? checks BG Dexcom G7 sensor Downloaded meter today? No Patient? reports glycemic control as: Fair Most recent Hgb A1C: 9.2, on 10/14/2024 Frequency of low B to 2 times a month Low BG treatment: Milk, Glucose tabs Frequency of high BG: Daily Does patient check Ketones? Reviewed rules at today's visit Has pt been on a pump in the past? No Reviewed insulin pump basics today with Patient. Explained pros and cons of insulin pumps. Showed pt various pumps, infusion sets, and cgms currently available. Reviewed need to wear pump 24/ and need to change infusion set every 3 days. Also stressed importance of frequent BG checks, 4x daily minimum or use pump that is integrated with CGM.? TDD:88 units Patient is interested in the Omnipod 5 Carb Counting Basic Patient stated he has carb counted in the past Reviewed the basic principles of carbohydrate counting.? Insulin to carb ratio, and insulin sensitivity factor calculated based on rule of 450 for insulin to carb ratio, and rule of 1500 for insulin sensitivity factor. Instructed patient on the importance of accurate calculation of the amount of carbs per meal for optimal glucose control Reviewed how to calculate mealtime bolus with insulin to carb ratio Reviewed how to calculate correction dose with insulin sensitivity factor Patient's TDD estimate 88 units Insulin to Carbohydrate ratio:1:5 Correction factor:1:17 Target 120 mg/dL Patient given healthy plate handout, for resource for carbohydrate counting Encourage patient to fill out food logs, estimating carbohydrates at meals, noting glucose number prior to meal, and how many units of insulin taken prior to meals Pt able to calculated needed insulin based on estimated carbohydrate content Instructed patient that there may need to be adjustment to insulin to carb ratio and sensitivity factor based on blood glucose trends. Patient demonstrated motivation for continued insulin pump education and understands the need to complete education prior to starting insulin pump for best outcome. Portions of this note were created using voice recognition software, please excuse any words or phrases that may have been misinterpreted. Patient Instructions: DIABETES PROBLEMS HOMECARE INSTRUCTIONS? for High Blood Sugar and When to Test for Ketones Hyperglycemia is the technical term for high blood glucose (blood sugar). High blood sugar happens when the body has too little insulin or when the body can't use insulin properly. What causes hyperglycemia? A number of things can cause hyperglycemia: If you have type 1, you may not have given yourself enough insulin. ? If you have type 2, your body may have enough insulin, but it is not as effective as it should be. You ate more than planned or exercised less than planned. You have stress from an illness, such as a cold or flu. You have other stress, such as family conflicts or school or dating problems. How to lower your blood sugar level. ? Take medications as directed by physician. ? Drink extra water or noncaffeinated, nonsugared drinks to prevented hydration. ? Exercise if you are not sick However, if your blood sugar is above 250 mg/dl, check your urine for ketones. If you have ketones, do not exercise Exercising when ketones are present may make your blood sugar level go even higher. You'll need to work with your doctor to find the safest way for you to lower your blood sugar level. Regularly check blood sugar or urine for sugar and acetone during illness. Diabetic ketoacidosis (DKA) Is serious condition that can lead to diabetic coma (passing out for a long time) or even . When your cells don't get the glucose they need for energy, your body begins to burn fat for energy, which produces ketones. Ketones are chemicals that the body creates when it breaks down fat to use for energy. The body does this when it doesn?t have enough insulin to use glucose, the body?s normal source of energy. When ketones build up in the blood, they make it more acidic. They are a warning sign that your diabetes is out of control or that you are getting sick. Symptoms of Diabetic Ketoacidosis (DKA) ? DKA usually develops slowly. But when vomiting occurs, this life-threatening condition can develop in a few hours. Early symptoms include the following: ? Thirst or a very dry mouth ? Frequent urination ? High blood glucose (blood sugar) levels ? High levels of ketones in the urine ? Then, other symptoms appear: ? Constantly feeling tired ? Dry or flushed skin ? Nausea, vomiting, or abdominal pain ? (Vomiting can be caused by many illnesses, not just ketoacidosis. If vomiting continues for more than 2 hours, contact your health care provider.) ? Difficulty breathing ? Fruity odor on breath ? A hard time paying attention, or confusion When should you test for ketones? It is advisable to check for ketones under the following conditions when: Your blood glucose is higher than 250mg/dl. Feeling nauseated, throwing up, or have pains in your abdominal region. Have a cold or flu. Have general body fatigue. Feel thirsty or have a very dry mouth. Have flushed skin. Have a fruity breath or a hard time breathing. You feel perplexed or in fog. How to Test Urine for Ketones You can detect ketones with a simple urine test using a test strip, similar to a blood testing strip. Ask your health care provider when and how you should test for ketones. Many experts advise to check your urine for ketones when your blood glucose is more than 250 mg/dl. When you are ill (when you have a cold or the flu, for example), check for ketones every 4 to 6 hours. And check every 4 to 6 hours when your blood sugar is more than 250 mg/dl. Also, check for ketones when you have any symptoms of DKA. How to lower your blood sugar level. ? Take medications as directed by physician. ? Drink extra water or noncaffeinated, nonsugared drinks to prevented hydration. ? Exercise if you are not sick However, if your blood sugar is above 250 mg/dl, check your urine for ketones. If you have ketones, do not exercise Exercising when ketones are present may make your blood sugar level go even higher. You'll need to work with your doctor to find the safest way for you to lower your blood sugar level. Regularly check blood sugar or urine for sugar and acetone during illness Coding Level of Care Code Est Pt Level 1 (62077) Diagnoses Type 1.5 diabetes, managed as type 1 E13.9
== END 2024-10-23 08:58 | disposition home or self-care (01) ==
PROVIDERS: Visit Provider Registered Nurse Diabetes Educator
DX: E13.9 Other specified diabetes mellitus without complications (principal)

== ENCOUNTER → 2024-10-23 07:57 | Outpatient (BNVA) | payer OTHER, SELFPAY | PROVIDERS: Visit Provider Registered Nurse Diabetes Educator | DX: E13.9 Other specified diabetes mellitus without complications (principal); Z46.81 Encounter for fitting and adjustment of insulin pump | CPT/HCPCS: 99211 ==

== ENCOUNTER 2024-12-23 09:06 | Outpatient (AMB) | payer OTHER, SELFPAY ==
--- NOTE | 2024-12-23 09:08 | MHC.OFFVIS ---
Vital Signs 12/23/24 09:12 Height 5 ft 11 in Weight 296 lb 2.676 oz BMI 41.3 BP 112/74 Blood Pressure Location Lt brachial Position Sitting Pulse 79 Pulse Source Pulse Oximeter Pulse Oximetry (%) 98 Oxygen Delivery Method Room Air Intake Visit Reasons: DM Intake Note: Patient present today to follow up on Type 2 Diabetes Mellitus. Last Diabetic Eye exam: May or June 2024 Last Podiatry Visit: Does not see a Dressed Poultry Grader Random Glucose: 219 mg/dl HgA1C: 9.2% 10/14/24 Pipe Cutter Required: No Accompanied by: Self / Same As Patient Allergies semaglutide [From Ozempic] Adverse Reaction (Unknown, Verified 12/23/24 09:15) GI Upset HPI Comments Details: This is a 34-year-old male with a past medical history of uncontrolled type 1-1/2 diabetes managed as type 1 at age 23 presenting for diabetic management. The patient has low C-peptide with negative SANDI and islet cell antibody screenings. Reviewed Dexcom download: GMI 9.6% Standard deviation 104 mg/dL 0% hypoglycemia 26% in range 23% high 51% very high There is a pattern of daytime and nighttime hyperglycemia. Nonsmoker. Drinks 1-2 alcoholic beverages on weekends. Hemoglobin A1c 10/14/2024 9.2%. Down from 12% 07/08/24. Current medication regimen: Humalog 10-15 units with meals and Lantus 38 units every morning. Mounjaro discontinued due to GI side effects (after 2nd injection he had nausea and vomiting and went to the ER). Ozempic discontinued due to headache. He was also previously treated with metformin. Eye exam: OD retinopathy- [place] [facility]. Microvascular complications: retinopathy Macrovascular complications: none Hypertension: no Hyperlipidemia: no LDL at goal <100. I submitted an appeal to his insurance company for Omnipod, and yesterday it was approved. He is very happy about this. Patient says that he has not had any interval ER visits or hospitalizations. He has been picking up a lot of over time shifts which has changed his schedule. He endorses low sugars 4 times per month that generally occur overnight, but he also has hyperglycemia in the morning. At night he sometimes makes a protein like chicken or steak with vegetables and has mashed potatoes or sweet potato fries on the side. ROS: Constitutional: No unexplained weight loss, fever, chills, fatigue or night sweats. Eyes: No vision changes, blurry vision, double vision, eye pain Respiratory: No shortness of breath Cardiovascular: No chest pain, chest pressure or chest discomfort. No palpitations or pedal edema. Neurologic: No headache, dizziness, syncope, unilateral weakness, ataxia, numbness or tingling in the extremities. Endocrine: No cold or heat intolerance. No polyuria or polydipsia. Physical exam: Constitutional: Alert, in no distress. Head: Normocephalic. Eyes: Pupils are equal, round and reactive to light. Extraocular muscles intact. Ear, Nose and Throat: Canals clear. TMs normal. Normal nasal mucosa. No nasal discharge. No oral lesions. Neck: Supple, Full range of motion. No lymphadenopathy. No palpable thyroid masses. Respiratory: Clear to auscultation. Cardiovascular: S1 S2 regular. No murmurs. Right foot: Warm and well perfused. No clubbing, cyanosis or edema. DP pulse intact. Decreased vibratory sensation. Intact sensation to monofilament. No open wounds. Dry skin noted. Left foot: Warm and well perfused. No clubbing, cyanosis or edema. DP pulse intact. Decreased vibratory sensation. Intact sensation to monofilament. No open wounds. Dry skin noted. [facility] Medical History (Updated 10/21/24 @ 13:19 by AMBAR Whitaker) Type 1.5 diabetes, managed as type 1 Uncontrolled type 2 diabetes mellitus with hyperglycemia Uncontrolled type 1 diabetes mellitus with hyperglycemia, with long-term current use of insulin Surgical History History of surgery Family History Mother Hypertension Social History Household Members: Significant Other Alcohol intake: current Alcohol intake frequency: a few times a month Patient Tobacco Use Status: Never used Tobacco Physical Exam Vital Signs: BMI result Body Mass Index 41.3 Office Procedures Glucose Monitoring Details Details: see HPI 41280 - Glucose monitoring, continuous-physician I&R Procedure code (CPT) selection complete Results Reviewed Results Reviewed: Laboratory Tests 02/04/24 07/08/24 10/14/24 08:30 09:43 09:50 Creatinine 0.75 Estimated GFR > 60 Hgb A1c (Clinic) 12.0 H 9.2 H C-Peptide Triglycerides 62 Cholesterol 145 LDL Cholesterol, Calc 93 HDL Cholesterol 40 L Urine Creatinine 337.01 Urine Microalbumin 76.0 Microalb/Creat Ratio 22.5 Islet Cell Ab Screen Islet Cell Ab Titer SANDI Antibody 10/14/24 10:18 Creatinine Estimated GFR Hgb A1c (Clinic) C-Peptide 0.23 L Triglycerides Cholesterol LDL Cholesterol, Calc HDL Cholesterol Urine Creatinine Urine Microalbumin Microalb/Creat Ratio Islet Cell Ab Screen NEGATIVE Islet Cell Ab Titer TNP SANDI Antibody <5 Assessment & Plan Assessment & Plan (1) Uncontrolled type 2 diabetes mellitus with hyperglycemia: Code(s): E11.65 - Type 2 diabetes mellitus with hyperglycemia Category: Medical Plan: In summary this is a 34-year-old male with uncontrolled type 1-1/2 diabetes being managed as a type 1 diabetic with microvascular complication (retinopathy). Patient will have a complete set of labs drawn in January. Will calculate fib 4 based on these results. We reviewed his diet, and he is going to try substituting high starch options in the evening with mashed cauliflower or zucchini fries. No changes made to insulin regimen today. Omnipod pump is approved by insurance. He already picked up ketone urine strips. 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 He will be referred back to our supervisor esters and emulsifiers as well. If you experience low blood sugar, treat this by eating a chewable fruit candy like skittles or jelly beans (about 8 pieces), 4 ounces (1/2 cup) of fruit juice (not diet), 1 tablespoon of honey or 4 glucose tablets. If your blood sugar is under 55, take double the amount of one of the above. Recheck your blood sugar in 15 minutes. Advised patient not to drive if he does not have a reliable method to monitor blood sugar or is experiencing hypoglycemia. Follow up in 1 month for diabetes management. Orders: Orders Hemoglobin A1c 01/14/25 E11.9 - Type 2 diabetes mellitus without complications, E13.9 - Other specified diabetes mellitus without complications Microalbumin, Random (w Creat) 01/14/25 E13.9 - Other specified diabetes mellitus without complications Platelet Count 01/14/25 E13.9 - Other specified diabetes mellitus without complications Comprehensive Met. Panel 01/14/25 E13.9 - Other specified diabetes mellitus without complications Lipid Panel 01/14/25 E13.9 - Other specified diabetes mellitus without complications B Type Natriuretic Peptide 01/14/25 E13.9 - Other specified diabetes mellitus without complications AMB Glucose Monitoring Today E11.9 - Type 2 diabetes mellitus without complications Medications: Refilled insulin lispro (Humalog KwikPen (U-100) Insulin) Inject subcutaneously per sliding scale; maximum 45 units/24 hours 15 mL 11RF Coding Level of Care Code Est Pt Level 4 (07435) Diagnoses Uncontrolled type 2 diabetes mellitus with hyperglycemia E11.65 CPT Codes Details - CPT: 60964 - Glucose monitoring, continuous-physician I&R ([id number])
[2024-12-23 09:12] VITALS: BP 112/74; PULSE 79; O2SAT 98; BMI 41.3
[2024-12-23 09:22] LABS: Glucose, Whole Blood 219 mg/dL (60-115)
== END 2024-12-23 09:47 | disposition home or self-care (01) ==
PROVIDERS: Visit Provider Physician Assistant Medical
DX: E11.65 Type 2 diabetes mellitus with hyperglycemia (principal)

== ENCOUNTER → 2024-12-23 09:06 | Outpatient (BNVA) | payer OTHER, SELFPAY | PROVIDERS: Visit Provider Physician Assistant Medical | DX: E13.65 Other specified diabetes mellitus with hyperglycemia (principal) | CPT/HCPCS: 82947 ==

== ENCOUNTER 2025-01-01 07:55 | Outpatient (AMB) | payer OTHER, SELFPAY ==
--- NOTE | 2025-01-01 08:31 | MHC.AMDMED ---
Intake Intake Visit Reasons: DM/Carb counting Allergies semaglutide [From Ozempic] Adverse Reaction (Unknown, Verified 12/23/24 09:15) GI Upset HPI Comprehensive Diabetes Asmnt Most Recent Diabetes Results: Microalb/Creat Ratio 22.5 ug/mg cr (<30) 02/04/24 Cholesterol 145 mg/dL (<200) 02/04/24 HDL Cholesterol 40 mg/dL (>40) L 02/04/24 Triglycerides 62 mg/dL (<150) 02/04/24 Creatinine 0.75 mg/dL (0.5-1.4) 02/04/24 Blood Urea Nitrogen 9 mg/dL (9-16) 02/04/24 Sodium 142 mmol/L (135-145) 02/04/24 Potassium 3.7 mmol/L (3.3-5.1) 02/04/24 Chloride 108 mmol/L (96-108) 02/04/24 Carbon Dioxide 28 mmol/L (22-29) 02/04/24 Calcium 9.0 mg/dL (8.4-10.2) 02/04/24 [facility] Medical History (Updated 10/21/24 @ 13:19 by AMBAR Whitaker) Type 1.5 diabetes, managed as type 1 Uncontrolled type 2 diabetes mellitus with hyperglycemia Uncontrolled type 1 diabetes mellitus with hyperglycemia, with long-term current use of insulin Surgical History History of surgery Family History Mother Hypertension Social History Household Members: Significant Other Alcohol intake: current Alcohol intake frequency: a few times a month Patient Tobacco Use Status: Never used Tobacco Assessment & Plan Assessment & Plan (1) Type 1.5 diabetes, managed as type 1: Comment: low cpeptide, negative SANDI and islet cell antibodies October 2024 Code(s): E13.9 - Other specified diabetes mellitus without complications Plan: Carb Counting Basic Patient presents for appointment carbohydrate counting education. Reviewed the basic principles of carbohydrate counting.? Insulin to carb ratio, and insulin sensitivity factor calculated based on rule of 450 for insulin to carb ratio, and rule of 1500 for insulin sensitivity factor. Instructed patient on the importance of accurate calculation of the amount of carbs per meal for optimal glucose control Reviewed how to calculate mealtime bolus with insulin to carb ratio Reviewed how to calculate correction dose with insulin sensitivity factor Patient's TDD estimate 88 units Insulin to Carbohydrate ratio: 1:5 Correction factor:1:17 Correct to 120 mg/dL Diet Recall: Breakfast: Container of yogurt 20 g Lunch: sandwiches on roll or 2 slices of bread 30-60 g Snacks: Patient reports eating low carb snacks such as nuts, beef jerky Patient given healthy plate handout, for resource for carbohydrate counting Encourage patient to fill out food logs, estimating carbohydrates at meals, noting glucose number prior to meal, and how many units of insulin taken prior to meals Pt able to calculated needed insulin based on estimated carbohydrate content Patient will use BolusCalc shaan on smart phone to estimate insulin doses Instructed patient that there may need to be adjustment to insulin to carb ratio and sensitivity factor based on blood glucose trends. Patient given carbohydrate counting handout with healthy plate handout carb lists Portions of this note were created using voice recognition software, please excuse any words or phrases that may have been misinterpreted. Plan Fill out food log bring it back to next appointment in 2 weeks Coding Level of Care Code Est Pt Level 1 (24928) Diagnoses Type 1.5 diabetes, managed as type 1 E13.9
== END 2025-01-01 08:45 | disposition home or self-care (01) ==
PROVIDERS: Visit Provider Registered Nurse Diabetes Educator
DX: E13.9 Other specified diabetes mellitus without complications (principal)

== ENCOUNTER → 2025-01-01 07:55 | Outpatient (BNVA) | payer OTHER, SELFPAY | PROVIDERS: Visit Provider Registered Nurse Diabetes Educator | DX: E13.9 Other specified diabetes mellitus without complications (principal) | CPT/HCPCS: 99211 ==

== ENCOUNTER 2025-01-06 07:21 | Outpatient (AMB) | payer OTHER, SELFPAY ==
--- NOTE | 2025-01-06 07:02 | MHC.NURWM ---
Intake Intake Visit Reasons: DM Allergies semaglutide [From Ozempic] Adverse Reaction (Unknown, Verified 12/23/24 09:15) GI Upset Coding
--- NOTE | 2025-01-06 07:04 | MHC.OFFVIS ---
Vital Signs 01/06/25 07:23 Height 5 ft 11 in Weight 298 lb 4.567 oz BMI 41.6 BP 108/80 Blood Pressure Location Lt brachial Position Sitting Pulse 68 Pulse Source Pulse Oximeter Temp 91 F L Pulse Oximetry (%) 91 L Oxygen Delivery Method Room Air Intake Visit Reasons: DM Intake Note: Patient presents today for a follow-up on Type 1.5 Diabetes Mellitus: Last Diabetic eye exam was on: May or June Last Podiatry exam was on: Patient does not see a Hydraulic Tester Most recent HbA1c: 9.2%, 10/14/2024 Random Glucose- 10 mg/dL, Today Political Consultant Required: No Accompanied by: Self / Same As Patient Allergies semaglutide [From Ozempic] Adverse Reaction (Unknown, Verified 01/06/25 07:28) GI Upset Medication List - Last Reconciled 01/06/25 by Beverley High NP acetone (urine) test (Ketone Urine Test strips) As directed blood-glucose sensor (Dexcom G7 Sensor device) Use as directed to monitor blood glucose continuously. Change sensor every 10 days. glucose (Dex4 Glucose) 16 grams (4 x 4 gram) PO Q15M PRN insulin aspart (niacinamide) 100 unit/mL (Fiasp U-100 Insulin) up to 100 units per day via insulin pump subcutaneously use as directed; insulin glargine (Lantus Solostar U-100 Insulin) 38 units subcut DAILY insulin lispro (Humalog KwikPen (U-100) Insulin) Inject subcutaneously per sliding scale; maximum 45 units/24 hours insulin brand marketing intern cart,aut,G6/7,cntr (Omnipod 5 G6-G7 Intro Kit(Gen 5) subcutaneous cartridge and controller) As directed insulin pump cart,auto,BT,G6/7 (Omnipod 5 G6-G7 Pods (Gen 5) subcutaneous cartridge) As directed with insulin pump. Change cartridge every 48 hours. ondansetron HCl 4 mg PO Q8H PRN HPI Comments Details: This is a 34-year-old male with a past medical history of uncontrolled type 1-1/2 diabetes managed as type 1 at age 23 presenting for diabetic management. He was last seen by Joan VILLALTA on 12/23/2024 and has been approved for an Omnipod insulin pump. The patient has low C-peptide with negative SANDI and islet cell antibody screenings. Dexcom average glucose: [ ] 14 day continuous glucose monitor report reviewed Glucose Managment indicator [ ] % Days with CGM data [ ] % TIme in ranges: [ ] % very high (above 250) [ ] % high ?(181-250) [ ] % in range ?(70-180] [ ] % low (69-55) [ ] % ?very low (below 54) [ ] Standard Deviation Interpretation [ ] Nonsmoker. Drinks 1-2 alcoholic beverages on weekends. Hemoglobin A1c 10/14/2024 9.2%. Down from 12% 07/08/24. Prevous medications:Mounjaro discontinued due to GI side effects (after 2nd injection he had nausea and vomiting and went to the ER). Ozempic discontinued due to headache. He was also previously treated with metformin Current medication regimen: Lantus 38 units in the morning Humalog 10-15 units with meals Mounjaro discontinued due to GI side effects (after 2nd injection he had nausea and vomiting and went to the ER). Ozempic discontinued due to headache. He was also previously treated with metformin. Microvascular complications: retinopathy Eye exam: OD retinopathy- [facility]. Macrovascular complications: none Has Nephropathy: microalbumin 76 02/04/24 cr 0.75 eGFR>60 Hypertension: no Hyperlipidemia: no LDL at goal <100. [facility] Medical History (Updated 10/21/24 @ 13:19 by AMBAR Whitaker) Type 1.5 diabetes, managed as type 1 Uncontrolled type 2 diabetes mellitus with hyperglycemia Uncontrolled type 1 diabetes mellitus with hyperglycemia, with long-term current use of insulin Surgical History History of surgery Family History Mother Hypertension Social History Household Members: Significant Other Alcohol intake: current Alcohol intake frequency: a few times a month Patient Tobacco Use Status: Never used Tobacco Physical Exam Const Other: Absence of Cushingoid features. Absence of acromegalic features. Neck exam reveals nl size thyroid about 15 gms. No thyroid nodules palpable. No carotid bruits present. Heart S1 S2, Reg R/R. No M/R G. Skin exam reveals absence of vitiligo or acanthosis nigricans. No edema Visual exam of foot performed. No ulcerations or open lesions. No inter digit maceration or fissuring. No onychomycosis, no callouses. Sensation intact to monofilament exam. Vibratory sensation is normal with 128 Hz tuning fork. Assessment & Plan Assessment & Plan (1) Type 1.5 diabetes, managed as type 1: Comment: low cpeptide, negative SANDI and islet cell antibodies October 2024 Code(s): E13.9 - Other specified diabetes mellitus without complications Category: Medical Plan: 34-year-old diabetic with a low C-peptide negative antibodies presents today for pre pump evaluation. He has nephropathy. Most recent A1c is 9.2 down from 12.4%. Significance of nephropathy discussed with patient, I recommended he determine his most common meals and have the carbs re entered into his omnipod. I see a prior auth for omnipod intro kit but not one for pods. 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 insulin vials sent: insurance covered fiasp according to [employer]. I contacted patient and let him know this. Importance of entering carbohydrate g into the insulin pump, following protocols for high glucose and low glucose in the need to have ketone test strips,Lantus and a way to deliver short acting insulin for meal injections glucometer, test strips, lancets, as a backup Medications: New insulin aspart (niacinamide) 100 unit/mL (Fiasp U-100 Insulin) up to 100 units per day via insulin pump subcutaneously use as directed; 30 mL 5RF Patient Instructions: Symptoms of DKA (diabetic ketoacidosis): early: frequent urination, dry mouth, fatigue, feeling ill, severe symptoms: ketones in the urine, abdominal pain, nausea, vomiting and weakness. It is important to hydrate with sugar free liquids every 15-30 minutes and bring the sugars down to normal levels. If you are moderate or severe with ketones or unable to bring glucose to less than 200, go to the emergency room. Take 15 carb carbohydrate grams to treat a low sugar (3-4 glucose tablets, half a glass of juice or 15 carbohydrate grams of soft candy such as gummie snacks). Recheck your sugar in 15 minutes and re-treat again with 15 carbohydrate grams if low or still with symptoms. Do not drive a car or operate machinery if you do not know what your blood sugar is, if it is low or in excess of 300. The patient was counseled to achieve a target A1C of 7% (154 avg). Fasting blood sugars should be 90-130 in the morning and less than 180 two hours after meals. Reviewed the relationship between poor diabetic control and the development of complications. Coding Level of Care Code New Pt Level 5 (76381) Complex EM visit Add On G2211 Diagnoses Type 1.5 diabetes, managed as type 1 E13.9 Time Spent (min) 45 Comment Time spent reviewing labs/provider notes, face to face, chart doc
[2025-01-06 07:23] VITALS: BP 108/80; PULSE 68; TEMP 32.7; O2SAT 91; BMI 41.6
[2025-01-06 07:33] LABS: Glucose, Whole Blood 160 mg/dL (60-115)
== END 2025-01-06 10:33 | disposition home or self-care (01) ==
PROVIDERS: Visit Provider Nurse Practitioner Adult Health
DX: E13.9 Other specified diabetes mellitus without complications (principal)
CPT/HCPCS: 99204

== ENCOUNTER → 2025-01-06 07:21 | Outpatient (BNVA) | payer OTHER, SELFPAY | PROVIDERS: Visit Provider Nurse Practitioner Adult Health | DX: E13.9 Other specified diabetes mellitus without complications (principal) | CPT/HCPCS: 82947 ==

== ENCOUNTER 2025-01-15 06:56 | Outpatient (AMB) | payer OTHER, SELFPAY ==
--- NOTE | 2025-01-15 06:57 | MHC.AMDMED ---
Intake Intake Visit Reasons: 60 min Relief Worker Required: No Accompanied by: Self / Same As Patient Allergies semaglutide [From Ozempic] Adverse Reaction (Unknown, Verified 01/06/25 07:28) GI Upset HPI Comprehensive Diabetes Asmnt Most Recent Diabetes Results: Microalb/Creat Ratio 22.5 ug/mg cr (<30) 02/04/24 Cholesterol 145 mg/dL (<200) 02/04/24 HDL Cholesterol 40 mg/dL (>40) L 02/04/24 Triglycerides 62 mg/dL (<150) 02/04/24 Creatinine 0.75 mg/dL (0.5-1.4) 02/04/24 Blood Urea Nitrogen 9 mg/dL (9-16) 02/04/24 Sodium 142 mmol/L (135-145) 02/04/24 Potassium 3.7 mmol/L (3.3-5.1) 02/04/24 Chloride 108 mmol/L (96-108) 02/04/24 Carbon Dioxide 28 mmol/L (22-29) 02/04/24 Calcium 9.0 mg/dL (8.4-10.2) 02/04/24 [facility] Medical History (Updated 10/21/24 @ 13:19 by AMBAR Whitaker) Type 1.5 diabetes, managed as type 1 Uncontrolled type 2 diabetes mellitus with hyperglycemia Uncontrolled type 1 diabetes mellitus with hyperglycemia, with long-term current use of insulin Surgical History History of surgery Family History Mother Hypertension Social History Household Members: Significant Other Alcohol intake: current Alcohol intake frequency: a few times a month Patient Tobacco Use Status: Never used Tobacco Assessment & Plan Assessment & Plan (1) Type 1.5 diabetes, managed as type 1: Comment: low cpeptide, negative SANDI and islet cell antibodies October 2024 Code(s): E13.9 - Other specified diabetes mellitus without complications Plan: Patient presents for pump training for Omnipod 5 pump with Dexcom G7 training today. The following topics were reviewed today: -Pump therapy basic concepts: Basal/bolus, insulin to carb ratio, correction factor, insulin on board -Device settings: Bluetooth/mobile connection (if applicable), correct date and time, sound volume -CGM settings(if integrated system): CGM graft views and trend arrows, alerts and alarms, Start new sensor ??? High Alert: 250 mg/dL ??? Low Alert: 70 mg/dL ??? Insulin delivery settings Program insulin to carb ratio, correction factor, target blood glucose, suspend or resume insulin delivery, bolus limit and basal limit settings Instructed patient to only use room temperature insulin, how to load cartridge or fill pod, with insulin. Fill tubing and cannula (if applicable) Inserting infusion set or starting pod Troubleshooting after starting new pod or inserting new insulin set: Occlusion, adhesive tape sensitivity, redness Check BG 2 hours after site change Safety information: Importance of a backup plan, Pt given copy of plan, for manual injections, proper prescriptions and emergency supplies ketone strips, and rules for testing for ketones, Pt reports he has ketone strips at home Patient was able to insert insulin set today without difficulty. Patient understands the basic concepts of pump therapy, how to give insulin for meals and snacks, how to troubleshoot for hyper and hypoglycemia. Setting verified by [facility] Basal rate(s) (units/hour) : 12 AM? to 12 AM? 1.1 units / hr Bolus setting Insulin Carbohydrate Ratio (s) 12 AM? to 12 AM? 1:7 Correction Factor / Sensitivity Factor 12 AM? to 12 AM? 1:30 Active Insulin Time:? 4 hours Target(s): 12 AM? to 12 AM 120 mg/dL Correct above: 12 AM? to 12 AM 130 mg/dL Patient will follow up with [facility] as instructed Patient will contact [facility] with questions or concerns, patient given IT number to support in any technical issues related to insulin pump Portions of this note were created using voice recognition software, please excuse any words or phrases that may have been misinterpreted. Patient Instructions: DIABETES PROBLEMS HOMECARE INSTRUCTIONS? for High Blood Sugar and When to Test for Ketones Hyperglycemia is the technical term for high blood glucose (blood sugar). High blood sugar happens when the body has too little insulin or when the body can't use insulin properly. What causes hyperglycemia? A number of things can cause hyperglycemia: If you have type 1, you may not have given yourself enough insulin. ? If you have type 2, your body may have enough insulin, but it is not as effective as it should be. You ate more than planned or exercised less than planned. You have stress from an illness, such as a cold or flu. You have other stress, such as family conflicts or school or dating problems. How to lower your blood sugar level. ? Take medications as directed by physician. ? Drink extra water or noncaffeinated, nonsugared drinks to prevented hydration. ? Exercise if you are not sick However, if your blood sugar is above 250 mg/dl, check your urine for ketones. If you have ketones, do not exercise Exercising when ketones are present may make your blood sugar level go even higher. You'll need to work with your doctor to find the safest way for you to lower your blood sugar level. Regularly check blood sugar or urine for sugar and acetone during illness. Diabetic ketoacidosis (DKA) Is serious condition that can lead to diabetic coma (passing out for a long time) or even . When your cells don't get the glucose they need for energy, your body begins to burn fat for energy, which produces ketones. Ketones are chemicals that the body creates when it breaks down fat to use for energy. The body does this when it doesn?t have enough insulin to use glucose, the body?s normal source of energy. When ketones build up in the blood, they make it more acidic. They are a warning sign that your diabetes is out of control or that you are getting sick. Symptoms of Diabetic Ketoacidosis (DKA) ? DKA usually develops slowly. But when vomiting occurs, this life-threatening condition can develop in a few hours. Early symptoms include the following: ? Thirst or a very dry mouth ? Frequent urination ? High blood glucose (blood sugar) levels ? High levels of ketones in the urine ? Then, other symptoms appear: ? Constantly feeling tired ? Dry or flushed skin ? Nausea, vomiting, or abdominal pain ? (Vomiting can be caused by many illnesses, not just ketoacidosis. If vomiting continues for more than 2 hours, contact your health care provider.) ? Difficulty breathing ? Fruity odor on breath ? A hard time paying attention, or confusion When should you test for ketones? It is advisable to check for ketones under the following conditions when: Your blood glucose is higher than 250mg/dl. Feeling nauseated, throwing up, or have pains in your abdominal region. Have a cold or flu. Have general body fatigue. Feel thirsty or have a very dry mouth. Have flushed skin. Have a fruity breath or a hard time breathing. You feel perplexed or in fog. How to Test Urine for Ketones You can detect ketones with a simple urine test using a test strip, similar to a blood testing strip. Ask your health care provider when and how you should test for ketones. Many experts advise to check your urine for ketones when your blood glucose is more than 250 mg/dl. When you are ill (when you have a cold or the flu, for example), check for ketones every 4 to 6 hours. And check every 4 to 6 hours when your blood sugar is more than 250 mg/dl. Also, check for ketones when you have any symptoms of DKA. How to lower your blood sugar level. ? Take medications as directed by physician. ? Drink extra water or noncaffeinated, nonsugared drinks to prevented hydration. ? Exercise if you are not sick However, if your blood sugar is above 250 mg/dl, check your urine for ketones. If you have ketones, do not exercise Exercising when ketones are present may make your blood sugar level go even higher. You'll need to work with your doctor to find the safest way for you to lower your blood sugar level. Regularly check blood sugar or urine for sugar and acetone during illness Coding Level of Care Code Est Pt Level 1 (08445) Diagnoses Type 1.5 diabetes, managed as type 1 E13.9
== END 2025-01-15 08:32 | disposition home or self-care (01) ==
PROVIDERS: Visit Provider Registered Nurse Diabetes Educator
DX: E13.9 Other specified diabetes mellitus without complications (principal)

== ENCOUNTER → 2025-01-15 06:56 | Outpatient (BNVA) | payer OTHER, SELFPAY | PROVIDERS: Visit Provider Registered Nurse Diabetes Educator | DX: Z46.81 Encounter for fitting and adjustment of insulin pump (principal); E13.9 Other specified diabetes mellitus without complications | CPT/HCPCS: 99211 ==

== ENCOUNTER 2025-01-22 15:07 | Outpatient (AMB) | payer OTHER, SELFPAY ==
--- NOTE | 2025-01-22 15:29 | MHC.AMDMED ---
Intake Intake Visit Reasons: DM-keep on schedule Metal Filer Required: No Accompanied by: Self / Same As Patient Allergies semaglutide [From Ozempic] Adverse Reaction (Unknown, Verified 01/06/25 07:28) GI Upset HPI Comprehensive Diabetes Asmnt Most Recent Diabetes Results: No Data to Display [facility] Medical History (Updated 10/21/24 @ 13:19 by AMBAR Whitaker) Type 1.5 diabetes, managed as type 1 Uncontrolled type 2 diabetes mellitus with hyperglycemia Uncontrolled type 1 diabetes mellitus with hyperglycemia, with long-term current use of insulin Surgical History History of surgery Family History Mother Hypertension Social History Household Members: Significant Other Alcohol intake: current Alcohol intake frequency: a few times a month Patient Tobacco Use Status: Never used Tobacco Assessment & Plan Assessment & Plan (1) Type 1.5 diabetes, managed as type 1: Comment: low cpeptide, negative SANDI and islet cell antibodies October 2024 Code(s): E13.9 - Other specified diabetes mellitus without complications Plan: Patient presents for pump training for Omnipod 5 pump with Comprehensive Care G7 training today. The following topics were reviewed today: -insulin action, of Fiasp verses Humalog -reducing carbohydrate intake to under 80 g per meal -person's insulin demand is variable depending on person's insulin needs ??? High Alert: 250 mg/dL ??? Low Alert: 70 mg/dL ??? Patient concerned because he was using over 100 units of insulin daily with his Omnipod. Reviewed patient's pump information, they were days when patient was eating meals greater than 100 g of carbohydrate several times daily. Explained to patient that everyone's insulin demand is different, if he reduces carbohydrate count at meals he will use less insulin. Explained to him on the days where he was entering smaller meals his glucose control was better. Request for script for Fiasp vials sent to endocrine CHIEF DEVELOPMENT OFFICER, along with request for updating Omnipod 5 pods to 3 boxes monthly. Troubleshooting after starting new pod or inserting new insulin set: Occlusion, adhesive tape sensitivity, redness Check BG 2 hours after site change Safety information: Importance of a backup plan, Pt given copy of plan, for manual injections, proper prescriptions and emergency supplies ketone strips, and rules for testing for ketones, Pt reports he has ketone strips at home Patient understands the basic concepts of pump therapy, how to give insulin for meals and snacks, how to troubleshoot for hyper and hypoglycemia. Setting verified by [facility], today's visit was tell of visit patient will need pump setting adjustment at next in-person visit in 2 weeks Basal rate(s) (units/hour) : 12 AM? to 12 AM? 1.1 units / hr Bolus setting Insulin Carbohydrate Ratio (s) 12 AM? to 12 AM? 1:7 Correction Factor / Sensitivity Factor 12 AM? to 12 AM? 1:30 Active Insulin Time:? 4 hours Target(s): 12 AM? to 12 AM 120 mg/dL Correct above: 12 AM? to 12 AM 130 mg/dL Patient Instructions: Patient will follow up with [facility] as instructed Patient will contact [facility] with questions or concerns, patient given IT number to support in any technical issues related to insulin pump Telehealth Telehealth Telehealth Platform: Telephone Location of provider rendering services: practice address Location of patient: address on file Patient Identification confirmed using: Name, : Yes Telehealth method: voice only Patient verbally consented to treatment: Yes Patient verbally consented to billing insurance company: Yes Patient informed of any privacy concerns related to visit: Yes Minutes spent on Phone/Video with Pt.: 30 Coding Level of Care Code Est Pt Level 1 (74258) Diagnoses Type 1.5 diabetes, managed as type 1 E13.9
== END 2025-01-22 16:12 | disposition home or self-care (01) ==
LOC: HO.ENCR 15:07
PROVIDERS: Visit Provider Registered Nurse Diabetes Educator
DX: E13.9 Other specified diabetes mellitus without complications (principal)

== ENCOUNTER → 2025-01-22 15:07 | Outpatient (BNVA) | payer OTHER, SELFPAY | PROVIDERS: Visit Provider Registered Nurse Diabetes Educator | DX: Z46.81 Encounter for fitting and adjustment of insulin pump (principal); E13.9 Other specified diabetes mellitus without complications | CPT/HCPCS: 99211 ==

== ENCOUNTER 2025-02-12 08:25 | Outpatient (AMB) | payer OTHER, SELFPAY ==
--- NOTE | 2025-02-12 07:09 | A.OFFVIS_ITS ---
Vital Signs 02/12/25 08:31 Height 5 ft 11 in Weight 297 lb 9.985 oz BMI 41.5 BP 116/82 Blood Pressure Location Rt brachial Position Sitting Pulse 73 Pulse Source Monitor Pulse Oximetry (%) 97 Oxygen Delivery Method Room Air Intake Visit Reasons: DM Intake Note: Patient presents today for a follow-up for Type 1.5 Diabetes Mellitus: Last Diabetic eye exam was on: OVER DUE Last Podiatry exam was on: Does not see a Check Inspector Most recent HbA1c: 8.5%, 02/12/2025 Random Glucose- 201 mg/dL, Today Allergies semaglutide [From Ozempic] Adverse Reaction (Unknown, Verified 01/06/25 07:28) GI Upset Medication List - Last Reconciled 02/12/25 by Beverley High NP acetone (urine) test (Ketone Urine Test strips) As directed blood-glucose sensor (Dexcom G7 Sensor device) Use as directed to monitor blood glucose continuously. Change sensor every 10 days. glucose (Dex4 Glucose) 16 grams (4 x 4 gram) PO Q15M PRN insulin aspart (niacinamide) 100 unit/mL (Fiasp U-100 Insulin) up to 100 units per day via insulin pump subcutaneously use as directed; insulin glargine (Lantus Solostar U-100 Insulin) 50 units subcut DAILY PRN insulin painter rough cart,aut,G6/7,cntr (Omnipod 5 G6-G7 Intro Kit(Gen 5) subcutaneous cartridge and controller) As directed insulin pump cart,auto,BT,G6/7 (Omnipod 5 G6-G7 Pods (Gen 5) subcutaneous cartridge) change every 2 days ondansetron HCl 4 mg PO Q8H PRN HPI Comments Details: This is a 34-year-old male with a past medical history of 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 He was last seen by myself 5 weeks ago and since that time has been started on an omnipod insulin pump. He has seen Celena REED on 01/22/25 and did not make any adjustments to his settings. The patient has low C-peptide with negative SANDI and islet cell antibody screenings. Dexcom average glucose: 209 14 day continuous glucose monitor report reviewed Glucose Managment indicator [ ] % Days with CGM data 84 % TIme in ranges: 26 % very high (above 250) 30% high ?(181-250) 44 % in range ?(70-180] 0 % low (69-55) 0 % ?very low (below 54) Interpretation [ overall running 60 points higher than average with postprandial bumps ] TDD 89.6 Basal 51.4 units 57% bolus 38.3 units 43 carbs per day to 67 in auto mode 99 % Nonsmoker. Drinks 1-2 alcoholic beverages on weekends. Hemoglobin A1c 10/14/2024 9.2%. Down from 12% 07/08/24. Prevous medications:Mounjaro discontinued due to GI side effects (after 2nd injection he had nausea and vomiting and went to the ER). Ozempic discontinued due to headache. He was also previously treated with metformin Current medication regimen: Back up pump failure planL Lantus 50units in the morning Humalog 10-15 units with meals Microvascular complications: retinopathy Eye exam: OD retinopathy- [facility]. Macrovascular complications: none Has Nephropathy: microalbumin 76 02/04/24 cr 0.75 eGFR>60 Hypertension: no Hyperlipidemia: no LDL at goal <100. Bolus setting Insulin Carbohydrate Ratio (s) 12 AM? to 12 AM? 1:7 new 1:6 Correction Factor / Sensitivity Factor 12 AM? to 12 AM? 1:30 new 28 Active Insulin Time:? 4 hours new 3.0 Target(s): 12 AM? to 12 AM 120 mg/dL Correct above: 12 AM? to 12 AM 130 mg/dL [facility] Medical History Type 1.5 diabetes, managed as type 1 Uncontrolled type 2 diabetes mellitus with hyperglycemia Uncontrolled type 1 diabetes mellitus with hyperglycemia, with long-term current use of insulin Surgical History History of surgery Family History Mother Hypertension Social History Household Members: Significant Other Alcohol intake: current Alcohol intake frequency: a few times a month Patient Tobacco Use Status: Never used Tobacco Physical Exam Vital Signs: Last Vital Signs Pulse 73 02/12/25 08:31 BP 116/82 02/12/25 08:31 Pulse Ox 97 02/12/25 08:31 Oxygen Delivery Method Room Air 02/12/25 08:31 BMI result Body Mass Index 41.5 Const Other: Absence of Cushingoid features. Absence of acromegalic features. Neck exam reveals nl size thyroid about 15 gms. No thyroid nodules palpable. Heart S1 S2, Reg R/R. No M/R G. Skin exam reveals absence of vitiligo or acanthosis nigricans. Visual exam of foot performed. No ulcerations or open lesions. No inter digit maceration or fissuring. No onychomycosis, no callouses. Sensation intact to monofilament exam. Vibratory sensation is normal with 128 Hz tuning fork. Office Procedures Glucose Monitoring Details Details: see [facility] [address] - Glucose monitoring, continuous-physician I&R Procedure code (CPT) selection complete Results AMB Hemoglobin A1c AMB Hemoglobin A1c 8.5 % Last Edit by DIPTI Zavala on 02/12/25 08:44 Results Reviewed Results Reviewed: Laboratory Last Values Glucose (Clinic) 201 mg/dL (60-115) H 02/12/25 08:35 Assessment & Plan Assessment & Plan (1) Type 1.5 diabetes, managed as type 1: Comment: low cpeptide, negative SANDI and islet cell antibodies October 2024 Code(s): E13.9 - Other specified diabetes mellitus without complications Category: Medical Plan: This is a 34-year-old male with diabetes recently started on an insulin pump. His most recent A1c 02/12/2025 8.5% reflects 1 month on insulin pump. settings today were changed to give him more pre-prandial insulin. patient has good understanding of need to carry backup insulin supplies, how to deal with low and high sugars a new prescription for Omnipod pods we will be sent as he is requiring 90 units of insulin per day which we will now go up given that he is getting more preprandial insulin and he will need to change pods every 2 days. The patient had an opportunity to ask questions regarding treatment plan. The patient expressed understanding and agreement with the above treatment plan. The patient is aware they should contact our office by phone for worsening glucose readings or for any low blood sugars which may warrant a change in diabetes medication. Compliance is encouraged with medications and any followup testing/consults which may have been ordered. Orders: Orders AMB Hemoglobin A1c Today E13.9 - Other specified diabetes mellitus without complications AMB Glucose Monitoring Today E13.9 - Other specified diabetes mellitus without complications Medications: Refilled insulin pump cart,auto,BT,G6/7 (Omnipod 5 G6-G7 Pods (Gen 5) subcutaneous cartridge) change every 2 days 15 ea 11RF E13.9 - Other specified diabetes mellitus without complications insulin pump cart,auto,BT,G6/7 (Omnipod 5 G6-G7 Pods (Gen 5) subcutaneous cartridge) change every 2 days 15 ea 11RF E13.9 - Other specified diabetes mellitus without complications Patient Instructions: Take 15 carb carbohydrate grams to treat a low sugar (3-4 glucose tablets, half a glass of juice or 15 carbohydrate grams of soft candy such as gummie snacks). Recheck your sugar in 15 minutes and re-treat again with 15 carbohydrate grams if low or still with symptoms. Do not drive a car or operate machinery if you do not know what your blood sugar is, if it is low or in excess of 300. Check your feet daily looking for any signs of infection, drainage, redness, ulceration and seek medical attention if this occurs. Break in shoes gradually and do not wear open-toed shoes or walk stocking footed or barefooted. Symptoms of DKA (diabetic ketoacidosis): early: frequent urination, dry mouth, fatigue, feeling ill, severe symptoms: ketones in the urine, abdominal pain, nausea, vomiting and weakness. It is important to hydrate with sugar free liquids every 15-30 minutes and bring the sugars down to normal levels. If you are moderate or severe with ketones or unable to bring glucose to less than 200, go to the emergency room. Troubleshooting after starting new pod or inserting new insulin set: Occlusion, adhesive tape sensitivity, redness Check BG 2 hours after site change Safety information: Importance of a backup plan, for manual injections, proper prescriptions and emergency supplies ketone strips, and rules for testing for ketones Coding Level of Care Code Est Pt Level 4 (31261) Complex EM visit Add On G2211 Diagnoses Type 1.5 diabetes, managed as type 1 E13.9 CPT Codes Details - CPT: 67516 - Glucose monitoring, continuous-physician I&R ([id number]) Time Spent (min) 35 Comment reviewing labs/provider notes, glucose sensor/pump reports, face to face, chart doc
[2025-02-12 08:31] VITALS: BP 116/82; PULSE 73; O2SAT 97; BMI 41.5
[2025-02-12 08:38] LABS: Glucose, Whole Blood 201 mg/dL (60-115)
== END 2025-02-12 09:07 | disposition home or self-care (01) ==
LOC: HO.ENCR 08:25
PROVIDERS: Visit Provider Nurse Practitioner Adult Health
DX: E13.9 Other specified diabetes mellitus without complications (principal)
CPT/HCPCS: 95251; 99214

== ENCOUNTER → 2025-02-12 08:25 | Outpatient (BNVA) | payer OTHER, SELFPAY | PROVIDERS: Visit Provider Nurse Practitioner Adult Health | DX: Z46.81 Encounter for fitting and adjustment of insulin pump (principal); E13.9 Other specified diabetes mellitus without complications; Z79.4 Long term (current) use of insulin | CPT/HCPCS: 82947; 83036 ==

== ENCOUNTER 2025-02-17 07:14 | Outpatient (AMB) | payer OTHER, SELFPAY ==
--- NOTE | 2025-02-17 07:29 | A.OFFVIS_ITS ---
Intake Intake Visit Reasons: 60 min Cordwood Cutter Helper Required: No Accompanied by: Self / Same As Patient Allergies semaglutide [From Ozempic] Adverse Reaction (Unknown, Verified 01/06/25 07:28) GI Upset HPI Comprehensive Diabetes Asmnt Most Recent Diabetes Results: 2 Microalb/Creat Ratio 22.5 ug/mg cr (<30) 02/04/24 Cholesterol 145 mg/dL (<200) 02/04/24 HDL Cholesterol 40 mg/dL (>40) L 02/04/24 Triglycerides 62 mg/dL (<150) 02/04/24 Creatinine 0.75 mg/dL (0.5-1.4) 02/04/24 Blood Urea Nitrogen 9 mg/dL (9-16) 02/04/24 Sodium 142 mmol/L (135-145) 02/04/24 Potassium 3.7 mmol/L (3.3-5.1) 02/04/24 Chloride 108 mmol/L (96-108) 02/04/24 Carbon Dioxide 28 mmol/L (22-29) 02/04/24 Calcium 9.0 mg/dL (8.4-10.2) 02/04/24 [facility] Medical History Type 1.5 diabetes, managed as type 1 Uncontrolled type 2 diabetes mellitus with hyperglycemia Uncontrolled type 1 diabetes mellitus with hyperglycemia, with long-term current use of insulin Surgical History History of surgery Family History Mother Hypertension Social History Household Members: Significant Other Alcohol intake: current Alcohol intake frequency: a few times a month Patient Tobacco Use Status: Never used Tobacco Assessment & Plan Assessment & Plan (1) Type 1.5 diabetes, managed as type 1: Comment: low cpeptide, negative SANDI and islet cell antibodies October 2024 Code(s): E13.9 - Other specified diabetes mellitus without complications Plan: Patient presents for pump training for Omnipod 5 pump with Dexcom G7 training today. The following topics were reviewed today: -insulin action of Fiasp -How pump uses Correction Factor -How pump uses target glucose and target threshold ??? High Alert: 250 mg/dL ??? Low Alert: 70 mg/dL Pt reports feeling more comfortable using Omnipod, at visit with WAREHOUSE RECEIVER on 02/12/2025 patient's A1c 8.5% down from 9.2% in October 2024. Patient is still experiencing some postprandial hyperglycemia reports that he may need to practice more of his carb counting. At today's visit we adjusted correction factor instructed patient to he manual correction when glucose levels are above target. Troubleshooting after starting new pod or inserting new insulin set: Occlusion, adhesive tape sensitivity, redness Check BG 2 hours after site change Patient understands the basic concepts of pump therapy, how to give insulin for meals and snacks, how to troubleshoot for hyper and hypoglycemia. Instructed Pt to merchandise pickup/receiving associate glucose tabs Setting verified by CDCES, today's visit was tell of visit patient will need pump setting adjustment at next in-person visit in 2 weeks Basal rate(s) (units/hour) : 12 AM? to 12 AM? 1.1 units / hr Bolus setting Insulin Carbohydrate Ratio (s) 12 AM? to 12 AM? 1:6 Correction Factor / Sensitivity Factor 12 AM? to 12 AM? 1:28 New 12 AM? to 12 AM? 1:25 Active Insulin Time:? 3 hours Target(s): 12 AM? to 12 AM 120 mg/dL Correct above: 12 AM? to 12 AM 130 mg/dL Coding Level of Care Code Est Pt Level 1 (37488) Diagnoses Type 1.5 diabetes, managed as type 1 E13.9
== END 2025-02-17 07:32 | disposition home or self-care (01) ==
LOC: HO.ENCR 07:14
PROVIDERS: Visit Provider Registered Nurse Diabetes Educator
DX: E13.9 Other specified diabetes mellitus without complications (principal)

== ENCOUNTER → 2025-02-17 07:14 | Outpatient (BNVA) | payer OTHER, SELFPAY | PROVIDERS: Visit Provider Registered Nurse Diabetes Educator | DX: Z46.81 Encounter for fitting and adjustment of insulin pump (principal); E13.9 Other specified diabetes mellitus without complications; Z79.4 Long term (current) use of insulin | CPT/HCPCS: 99211 ==

== ENCOUNTER 2025-04-23 06:55 | Outpatient (AMB) | payer OTHER, SELFPAY ==
--- NOTE | 2025-04-23 07:39 | A.OFFVIS_ITS ---
Intake Intake Visit Reasons: 60 min Faculty Neuropsychologist Required: No Accompanied by: Self / Same As Patient Allergies semaglutide [From Ozempic] Adverse Reaction (Unknown, Verified 01/06/25 07:28) GI Upset HPI Comprehensive Diabetes Asmnt Most Recent Diabetes Results: 2 Microalb/Creat Ratio 22.5 ug/mg cr (<30) 02/04/24 Cholesterol 145 mg/dL (<200) 02/04/24 HDL Cholesterol 40 mg/dL (>40) L 02/04/24 Triglycerides 62 mg/dL (<150) 02/04/24 Creatinine 0.75 mg/dL (0.5-1.4) 02/04/24 Blood Urea Nitrogen 9 mg/dL (9-16) 02/04/24 Sodium 142 mmol/L (135-145) 02/04/24 Potassium 3.7 mmol/L (3.3-5.1) 02/04/24 Chloride 108 mmol/L (96-108) 02/04/24 Carbon Dioxide 28 mmol/L (22-29) 02/04/24 Calcium 9.0 mg/dL (8.4-10.2) 02/04/24 [facility] Medical History Type 1.5 diabetes, managed as type 1 Uncontrolled type 2 diabetes mellitus with hyperglycemia Uncontrolled type 1 diabetes mellitus with hyperglycemia, with long-term current use of insulin Surgical History History of surgery Family History Mother Hypertension Social History Household Members: Significant Other Alcohol intake: current Alcohol intake frequency: a few times a month Patient Tobacco Use Status: Never used Tobacco Assessment & Plan Assessment & Plan (1) Type 1.5 diabetes, managed as type 1: Comment: low cpeptide, negative SANDI and islet cell antibodies October 2024 Code(s): E13.9 - Other specified diabetes mellitus without complications Plan: Patient presents for pump training for Omnipod 5 pump with Dexcom G7 training today. The following topics were reviewed today: -Extended bolus -Reveiw of carb counting - ??? High Alert: 250 mg/dL ??? Low Alert: 70 mg/dL A1c on 02/12/2025 patient's A1c 8.5%. Pt will be due for next A1c at visit with PUBLICATIONS DESIGNER in may Patient is still experiencing some postprandial hyperglycemia. Is visit we did a review of last several days of meals and there carb content. Encourage patient to measure carbohydrate portions at meals, for more accurate calculation Reviewed the effect that fat can have on glucose levels, recommended to patient when he eats high fat high carb meals he plays pump in manual mode to use extended bolus feature. Patient may need adjustment in insulin to carb ratio, but patient asked to try in proving carb counting skills in using extend bolus to see if this can increase time in range Troubleshooting after starting new pod or inserting new insulin set: Occlusion, adhesive tape sensitivity, redness Check BG 2 hours after site change Patient understands the basic concepts of pump therapy, how to give insulin for meals and snacks, how to troubleshoot for hyper and hypoglycemia. Instructed Pt to greens picker glucose tabs Setting verified by CDCES, no changes made to settings at today's visit Basal rate(s) (units/hour) : 12 AM? to 12 AM? 1.1 units / hr Bolus setting Insulin Carbohydrate Ratio (s) 12 AM? to 12 AM? 1:6 Correction Factor / Sensitivity Factor 12 AM? to 12 AM? 1:25 Active Insulin Time:? 3 hours Target(s): 12 AM? to 12 AM 120 mg/dL Correct above: 12 AM? to 12 AM 130 mg/dL Coding Level of Care Code Est Pt Level 1 (96254) Diagnoses Type 1.5 diabetes, managed as type 1 E13.9
== END 2025-04-23 07:42 | disposition home or self-care (01) ==
LOC: HO.ENCR 06:55
PROVIDERS: Visit Provider Registered Nurse Diabetes Educator
DX: E13.9 Other specified diabetes mellitus without complications (principal)

== ENCOUNTER → 2025-04-23 06:55 | Outpatient (BNVA) | payer OTHER, SELFPAY | PROVIDERS: Visit Provider Registered Nurse Diabetes Educator | DX: Z71.3 Dietary counseling and surveillance (principal); E13.9 Other specified diabetes mellitus without complications | CPT/HCPCS: 99211 ==

== ENCOUNTER 2025-05-21 07:59 | Outpatient (AMB) | payer OTHER, SELFPAY ==
[2025-05-21 08:03] VITALS: BP 118/78; PULSE 78; O2SAT 98; BMI 41.8
--- NOTE | 2025-05-21 08:03 | A.OFFVIS_ITS ---
Vital Signs 05/21/25 08:03 Height 5 ft 11 in Weight 299 lb 13.259 oz BMI 41.8 BP 118/78 Blood Pressure Location Rt brachial Position Sitting Pulse 78 Pulse Source Pulse Oximeter Pulse Oximetry (%) 98 Oxygen Delivery Method Room Air Intake Visit Reasons: DM Intake Note: Patient presents today for a follow-up for Type 1.5 Diabetes Mellitus: Last Diabetic eye exam was on: 02/26/2025, [facility] Last Podiatry exam was on: Does not see a Steam Tank Operator Most recent HbA1c: 8.1%, 05/21/2025 Random Glucose- 143 mg/dL, Today [facility] Adverse Reaction (Unknown, Verified 01/06/25 07:28) GI Upset Medication List - Last Reconciled 05/21/25 by Erick Sanchez MD acetone (urine) test (Ketone Urine Test strips) As directed blood-glucose sensor (Dexcom G7 Sensor device) Use as directed to monitor blood glucose continuously. Change sensor every 10 days. 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 He was last seen by Beverley Conner NP 02/12/25 ans is on omnipod insulin pump. He has seen Celena REED on 01/22/25 The patient has low C-peptide with negative SANDI and islet cell antibody screenings. Dexcom average glucose: 216 14 day continuous glucose monitor report reviewed Glucose Managment indicator 8.5 % Days with CGM data 93 % TIme in ranges: 26 % very high (above 250) 27% high ?(181-250) 32 % in range ?(70-180] 0 % low (69-55) 0 % ?very low (below 54) Pattern shows post-meal hyperglycemia and patient tends to bolus with start a meal Interpretation [ overall running 60 points higher than average with postprandial bumps ] TDD 89.6 Basal 54.3 units 57% bolus 40.6 units 43 carbs per day to 202.8 in auto mode 95 % Nonsmoker. Drinks 1-2 alcoholic beverages on weekends. Hemoglobin A1c %. Prevous medications:Mounjaro discontinued due to GI side effects (after 2nd injection he had nausea and vomiting and went to the ER). Ozempic discontinued due to headache. He was also previously treated with metformin Current medication regimen: Back up pump failure planL Lantus 50units in the morning Humalog 10-15 units with meals No hypoglycemia Microvascular complications: retinopathy Eye exam: OD retinopathy- [facility]. Last eye exam showed mild retinopathy Macrovascular complications: none Has Nephropathy: No Hypertension: no Hyperlipidemia: no LDL at goal <100. Bolus setting Insulin Carbohydrate Ratio (s) 12 AM? to 12 AM? 1:6 Correction Factor / Sensitivity Factor 12 AM? to 12 AM? 1:30 new 28 Active Insulin Time:? 4 hours new 3.0 Target(s): 12 AM? to 12 AM 120 mg/dL Correct above: 12 AM? to 12 AM 130 mg/dL [facility] Medical History Type 1.5 diabetes, managed as type 1 Uncontrolled type 2 diabetes mellitus with hyperglycemia Uncontrolled type 1 diabetes mellitus with hyperglycemia, with long-term current use of insulin Surgical History History of surgery Family History Mother Hypertension Social History Household Members: Significant Other Alcohol intake: current Alcohol intake frequency: a few times a month Patient Tobacco Use Status: Never used Tobacco Physical Exam Absence of Cushingoid features. Absence of acromegalic features. Neck exam reveals nl size thyroid about 15 gms. No thyroid nodules palpable. No carotid bruits present. Lungs CTA. Heart S1 S2, Reg R/R. No M/R/ G. Skin exam reveals absence of vitiligo or acanthosis nigricans. Abdominal exam reveals Soft NT/ND with NA BS. No organomegaly present. Extrem Other: Visual exam of foot performed. No ulcerations or open lesions. No onchomycosis, no callouses.Pulses 2 + distally. Sensation intact to monofilament exam. Vibratory sensation sensed 10 seconds in right, 10 seconds in left with 128 Hz tuning fork Results AMB Hemoglobin A1c AMB Hemoglobin A1c 8.1 % Last Edit by DIPTI Zavala on 05/21/25 08:15 Assessment & Plan Assessment & Plan (1) Uncontrolled type 2 diabetes mellitus with hyperglycemia: Code(s): E11.65 - Type 2 diabetes mellitus with hyperglycemia Category: Medical Plan: This is a 34-year-old male with history of type 2 diabetes being treated with basal -bolus insulin with poor glycemic control and no known microvascular or macrovascular complication Plan is to intensify the insulin: Carbohydrate ratio to 1:5. And change active insulin time to 2 hours. We will also tell patient to bolus 5-15 minutes before the meal. We will check microalbumin to creatinine ratio and lipid profile already ordered. Follow up with CDE in 6 weeks Orders: Orders Microalbumin, Random (w Creat) Today E13.9 - Other specified diabetes mellitus without complications AMB Hemoglobin A1c Today E13.9 - Other specified diabetes mellitus without complications Lipid Panel Today E13.9 - Other specified diabetes mellitus without complications Medications: [place] U-100 Insulin (insulin lispro-aabc) subcutaneously; infuse up to 100 units via insulin pump per day 30 mL 5RF NS Discontinued Humalog U-100 Insulin (insulin lispro) Discontinued Reason: Doctor's Order up to 100 units per day via pump subcutaneously daily; 30 days 30 mL 11RF NS Coding Level of Care Code Est Pt Level 4 (47208) Complex EM visit Add On G2211 Diagnoses Uncontrolled type 2 diabetes mellitus with hyperglycemia E11.65
[2025-05-21 08:11] LABS: Glucose, Whole Blood 143 mg/dL (60-115)
== END 2025-05-21 08:46 | disposition home or self-care (01) ==
LOC: HO.ENCR 08:00
PROVIDERS: Visit Provider Internal Medicine Endocrinology, Diabetes & Metabolism
DX: E11.65 Type 2 diabetes mellitus with hyperglycemia (principal); E13.9 Other specified diabetes mellitus without complications
CPT/HCPCS: 99214; G2211

== ENCOUNTER → 2025-05-21 07:59 | Outpatient (BNVA) | payer OTHER, SELFPAY | PROVIDERS: Visit Provider Internal Medicine Endocrinology, Diabetes & Metabolism | DX: E11.65 Type 2 diabetes mellitus with hyperglycemia (principal); Z79.4 Long term (current) use of insulin; Z96.41 Presence of insulin pump (external) (internal) | CPT/HCPCS: 82947; 83036 ==

== ENCOUNTER 2025-05-21 08:48 | Outpatient (REF) | payer OTHER, SELFPAY ==
[2025-05-21 11:21] LABS: Microalbum/Creatinine Ratio Ur 31.9 ug/mg cr (<30)
[2025-05-21 11:26] LABS: Cholesterol 174 mg/dL (<200); HDL Cholesterol 36 mg/dL (>40); Triglycerides 84 mg/dL (<150)
== END 2025-05-21 08:49 | disposition home or self-care (01) ==
LOC: HO.10HDL 08:48
PROVIDERS: Visit Provider Internal Medicine Endocrinology, Diabetes & Metabolism
DX: E13.9 Other specified diabetes mellitus without complications (principal)
CPT/HCPCS: 36415; 80061; 82043; 82570

== ENCOUNTER 2025-10-22 08:02 | Outpatient (AMB) | payer OTHER, SELFPAY ==
--- NOTE | 2025-10-22 08:03 | A.OFFVIS_ITS ---
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 Change sensor every 10 days. 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 The patient has low C-peptide with negative SANDI and islet cell antibody screenings. Dexcom average glucose: 194 14 day continuous glucose monitor report reviewed Glucose Managment indicator 7.9 % Days with CGM data 87 % TIme in ranges: 23 % very high (above 250) 25% high ?(181-250) 51 % in range ?(70-180] 1 % low (69-55) 0 % ?very low (below 54) Pattern shows post-meal hyperglycemia and patient tends to bolus with start a meal Interpretation [ overall running 60 points higher than average with postprandial bumps ] TDD 100.4 Basal 53.1 units 57% bolus 47 units 43 carbs per day to 221.9 in auto mode 95 % Nonsmoker. Drinks 1-2 alcoholic beverages on weekends. Hemoglobin A1c %. Prevous medications:Mounjaro discontinued due to GI side effects (after 2nd injection he had nausea and vomiting and went to the ER). Ozempic discontinued due to headache. He was also previously treated with metformin Current medication regimen: Back up pump failure planL Lantus 50units in the morning Humalog 10-15 units with meals rare hypoglycemia Microvascular complications: retinopathy Eye exam: OD retinopathy- [facility]. Last eye exam 02/2025 mild retinopathy Macrovascular complications: none Has Nephropathy: No Hypertension: no Hyperlipidemia: no LDL at goal <100. Basal rate equals 1.1 units/hour Bolus setting Insulin Carbohydrate Ratio (s) 12 AM? to 12 AM? 1:6 Correction Factor / Sensitivity Factor 12 AM? to 12 AM? 1:30 new 28 Active Insulin Time:? 4 hours new 3.0 Target(s): 12 AM? to 12 AM 120 mg/dL Correct above: 12 AM? to 12 AM 130 mg/dL [facility] Medical History Type 1.5 diabetes, managed as type 1 Uncontrolled type 2 diabetes mellitus with hyperglycemia Uncontrolled type 1 diabetes mellitus with hyperglycemia, with long-term current use of insulin Surgical History History of surgery Family History Mother Hypertension Social History Household Members: Significant Other Alcohol intake: current Alcohol intake frequency: a few times a month Patient Tobacco Use Status: Never used Tobacco Physical Exam Vital Signs: BMI result Body Mass Index 43.4 Absence of Cushingoid features. Absence of acromegalic features. Neck exam reveals nl size thyroid about 15 gms. No thyroid nodules palpable. No carotid bruits present. Lungs CTA. Heart S1 S2, Reg R/R. No M/R/ G. Skin exam reveals absence of vitiligo or acanthosis nigricans. Abdominal exam reveals Soft NT/ND with NA BS. No organomegaly present. Extrem Other: Visual exam of foot performed. No ulcerations or open lesions. No onchomycosis, no callouses.Pulses 2 + distally. Sensation intact to monofilament exam. Vibratory sensation sensed 10 seconds in right, 10 seconds in left with 128 Hz tuning fork Results AMB Hemoglobin A1c AMB Hemoglobin A1c 7.3 % Last Edit by DIPTI Cook on 10/22/25 08:38 Assessment & Plan Assessment & Plan (1) Uncontrolled type 2 diabetes mellitus with hyperglycemia: Code(s): E11.65 - Type 2 diabetes mellitus with hyperglycemia Category: Medical Plan: This is a 34-year-old male with history of type 2 diabetes being treated with Omnipod 5 pump with poor glycemic control and no known microvascular or macrovascular complication Plan is to intensify the insulin: Carbohydrate ratio to 1:5 for lunch and dinner starting at 11:00 we will start atorvastatin 10 mg q.d. and recheck lipid profile in 8 months. Follow up with CDE in 6 weeks. Follow up with me in 3 months Orders: Orders Lipid Panel 2 Months E13.9 - Other specified diabetes mellitus without complications AMB Hemoglobin A1c Today E13.9 - Other specified diabetes mellitus without complications Medications: New atorvastatin (Lipitor) 10 mg PO DAILY 30 tabs 5RF Coding Level of Care Code Est Pt Level 4 (20313) Add On Problem Visit Only Diagnoses Uncontrolled type 2 diabetes mellitus with hyperglycemia E11.65
[2025-10-22 08:08] VITALS: BP 116/78; PULSE 77; O2SAT 96; BMI 43.4
[2025-10-22 08:17] LABS: Glucose, Whole Blood 141 mg/dL (60-115)
== END 2025-10-22 08:47 | disposition home or self-care (01) ==
PROVIDERS: Visit Provider Internal Medicine Endocrinology, Diabetes & Metabolism
DX: E13.9 Other specified diabetes mellitus without complications (principal); E11.65 Type 2 diabetes mellitus with hyperglycemia
CPT/HCPCS: 99214; G2211

== ENCOUNTER → 2025-10-22 08:02 | Outpatient (BNVA) | payer OTHER, SELFPAY | PROVIDERS: Visit Provider Internal Medicine Endocrinology, Diabetes & Metabolism | DX: E11.65 Type 2 diabetes mellitus with hyperglycemia (principal); Z79.4 Long term (current) use of insulin; Z79.899 Other long term (current) drug therapy | CPT/HCPCS: 82947; 83036 ==